=== PATIENT | male | born 2005 | race Caucasian/White ===

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

== ENCOUNTER 2023-01-16 17:16 | Inpatient (IN) | payer MEDICAID, SELFPAY ==
[2023-01-16 17:17] VITALS: BP 145/96; PULSE 102; RESP 18; TEMP 37.4; O2SAT 97; BMI 31.6
--- NOTE | 2023-01-16 17:36 | W.ED.PSYCHS ---
HPI - Psych General: Chief Complaint: Psychiatric Symptoms Stated Complaint: SI/HI Time Seen by Provider: 01/16/23 17:22 Source: patient History of Present Illness: 17-year-old male presents emergency room with EMS from a [facility]. He spent in conflict with the caregivers and very aggressive. He is threatened to kill them. He is also threatened to harm himself he says he attempted to overdose on melatonin to tea. He has a history of mental health issues. He has been seen at [facility] before he cannot review records. MD complaint: suicidal ideation Onset (ago): day(s) Duration: constant Relieving factors: none Exacerbating factors: none Associated psychiatric symptoms: suicidal ideation Associated symptoms: Reports suicidal ideation If self harm: admits thoughts of self harm, has plan and has acted on plan Review of Systems Const: Denies: fever(s), chills, body aches, change in appetite, fatigue or malaise Card: Denies: chest pain Resp: Denies: dyspnea GI: Denies: abdominal pain : Denies: flank pain, dysuria, urinary frequency or urinary urgency Skin/Breast: Denies: rash or pruritus Psych: Reports: suicidal ideation [facility] ED PFSH: Medical History Dysuria Psychiatric care Physical Exam Const: GENERAL APPEARANCE: cooperative and comfortable ORIENTATION/CONSCIOUSNESS: Yes awake, Yes oriented to person, Yes oriented to place and Yes oriented to time HENMT: COMMON NORMALS: normocephalic, atraumatic and hearing grossly normal bilaterally HEAD & SCALP: normocephalic and atraumatic Resp: COMMON NORMALS: normal respiratory effort, No retractions, No use of accessory muscles and clear to auscultation bilaterally AUSCULTATION: clear to auscultation bilaterally Cardio: COMMON NORMALS: regular rate, regular rhythm and No murmurs present (Cardio) RATE: regular rate RHYTHM: regular rhythm GI: COMMON NORMALS: Soft to palpation and No hepatosplenomegaly present AUSCULTATION: Yes normoactive bowel sounds PALPATION: Yes Soft to palpation, No Tenderness to palpation present (GI), No Guarding due to palpation present (GI) and Yes No hepatosplenomegaly present Extremity: COMMON NORMALS: normal to inspection, capillary refill normal, no clubbing, cyanosis or edema, no calf tenderness and no pedal edema Neuro: SENSORIUM/ORIENTATION: Yes oriented to person, Yes oriented to place and Yes oriented to time Skin: COMMON NORMALS: no rashes or lesions noted GENERAL SKIN EXAM: no rashes or lesions noted Course Vital Signs: Vital signs: Vital Signs Temperature 98.1 F 01/16/23 20:52 Pulse Rate 104 H 01/16/23 20:52 Respiratory Rate 18 01/16/23 21:48 Blood Pressure 171/110 01/16/23 20:52 Pulse Oximetry 97 01/16/23 20:52 Oxygen Delivery Me thod Room Air 01/16/23 20:54 MDM - Psych Medical Decision Making Discussed with Dr. Alvarado on-call. Will admit to the [facility] for suicidal ideation bridge orders written Medical Records I reviewed the patient's medical records. Lab Data I reviewed the patient's lab results. 01/16/23 17:50 01/16/23 17:50 Laboratory Results WBC 8.5 10^3/uL (4.5-13.0) 01/16/23 17:50 RBC 5.28 10^6/uL (4.1-5.3) 01/16/23 17:50 Hgb 15.1 g/dL (11.7-16.6) 01/16/23 17:50 Hct 45.0 % (42.0-52.0) 01/16/23 17:50 MCV 85.2 fl (80-94) 01/16/23 17:50 MCH 28.6 pg (28.0-34.0) 01/16/23 17:50 MCHC 33.6 g/dL (30.0-36.0) 01/16/23 17:50 RDW 12.9 % (12.1-15.1) 01/16/23 17:50 Plt Count 251 10^3/cmm (130-400) 01/16/23 17:50 MPV 10.0 fL (7.4-10.4) 01/16/23 17:50 Neut % (Auto) 64.4 % 01/16/23 17:50 Lymph % (Auto) 25.3 % 01/16/23 17:50 [place] % (Auto) 7.7 % 01/16/23 17:50 Eos % (Auto) 1.5 % 01/16/23 17:50 Baso % (Auto) 0.6 % 01/16/23 17:50 Neut # (Auto) 5.49 10^3/uL (1.8-8.0) 01/16/23 17:50 Lymph # (Auto) 2.2 10^3/uL (1.5-6.5) 01/16/23 17:50 [place] # (Auto) 0.7 10^3/uL (0.2-0.9) 01/16/23 17:50 Eos # (Auto) 0.1 10^3/uL (0.0-0.8) 01/16/23 17:50 Baso # (Auto) 0.1 10^3/uL (0.0-0.1) 01/16/23 17:50 Nucleated RBC % (auto) 0 % 01/16/23 17:50 Nucleated RBCs # 0.0 /100WBC 01/16/23 17:50 Sodium 139 mmol/L (136-145) 01/16/23 17:50 Potassium 4.1 mmol/L (3.5-5.1) 01/16/23 17:50 Chloride 105 mmol/L (98-107) 01/16/23 17:50 Carbon Dioxide 21 mmol/L (22-29) L 01/16/23 17:50 Anion Gap 17.1 (5-19) 01/16/23 17:50 BUN 17 mg/dL (6-20) 01/16/23 17:50 Creatinine 0.9 mg/dL (0.7-1.2) 01/16/23 17:50 GFR Calculation 108.7 mL/min (90-130) 01/16/23 17:50 Glucose 102 mg/dL (65-115) 01/16/23 17:50 Calculated Osmolality 290 mOsm/kg (285-295) 01/16/23 17:50 Calcium 8.8 mg/dL (8.5-10.5) 01/16/23 17:50 Total Bilirubin 0.4 mg/dL (0.15-1.2) 01/16/23 17:50 AST 43 U/L (0-40) H 01/16/23 17:50 ALT 113 U/L (0-41) H 01/16/23 17:50 Alkaline Phosphatase 114 U/L (40-130) 01/16/23 17:50 Total Protein 7.0 g/dL (6.6-8.7) 01/16/23 17:50 Albumin 4.4 g/dL (3.5-5.2) 01/16/23 17:50 Globulin 2.6 g/dL (1.3-4.6) 01/16/23 17:50 Urine Color Yellow (Yellow) 01/16/23 17:33 Urine Appearance Clear (CLEAR) 01/16/23 17:33 Urine pH 5 (5-7) 01/16/23 17:33 Ur Specific [place] 1.020 (1.005-1.030) 01/16/23 17:33 Urine Protein Neg (Negative) 01/16/23 17:33 Urine Glucose (UA) Norm (Normal) 01/16/23 17:33 Urine Ketones Negative (Negative) 01/16/23 17:33 Urine Blood Neg (Negative) 01/16/23 17:33 Urine Nitrate Negative (Negative) 01/16/23 17:33 Urine Bilirubin 1+ (Negative) H 01/16/23 17:33 Urine Urobilinogen 1 mg/dL (Negative) H 01/16/23 17:33 Ur Leukocyte Esterase Negative (Negative) 01/16/23 17:33 Salicylates < 0.3 mg/dL (3-10) L 01/16/23 17:50 Urine Opiates Screen Negative ng/mL (Negative) 01/16/23 17:33 Acetaminophen < 5.0 ug/mL (10-30) L 01/16/23 17:50 Ur Barbiturates Screen Negative ng/mL (Negative) 01/16/23 17:33 Ur Phencyclidine Scrn Negative ng/mL (Negative) 01/16/23 17:33 Ur Amphetamines Screen Negative ng/mL (Negative) 01/16/23 17:33 U Benzodiazepines Scrn Negative ng/mL (Negative) 01/16/23 17:33 Urine Cocaine Screen Negative ng/mL (Negative) 01/16/23 17:33 U Marijuana (THC) Screen Negative ng/mL (Negative) 01/16/23 17:33 Discharge Plan Discharge Patient Disposition: Admitted As Inpatient Admit Provider: Albaro Guerrero Clinical Impression: Suicidal ideation Condition: Stable Coding Level of Care Code ED Tape Control Skin Or Spar Mill Operator for Edi Mcgill
[2023-01-16 17:50] LABS: Add Urine Microscopic? NO; Charge for UA Resulting for Rev
[2023-01-16 17:54] LABS: Bilirubin Urine 1+ (Negative); Blood Urine Neg (Negative); Glucose Urine UA Norm (Normal); Ketones Urine Negative (Negative); Leukocyte Esterase Urine Negative (Negative); Nitrate Urine Negative (Negative); Protein Urine Neg (Negative); Urine Appearance Clear (CLEAR); Urine Color Yellow (Yellow); Urobilinogen Urine 1 mg/dL (Negative); pH Urine 5 (5-7)
[2023-01-16 18:01] LABS: Amphetamines Screen Urine Negative (Negative); Barbiturates Screen Urine Negative (Negative); Benzodiazepines Screen Urine Negative (Negative); Cocaine Screen Urine Negative (Negative); Opiate Screen Urine Negative (Negative); PCP Screen Urine Negative (Negative); THC Screen Urine Negative (Negative)
[2023-01-16 18:11] LABS: Basophils # 0.1 10^3/uL (0.0-0.1); Basophils % 0.6 %; Eosinophils # 0.1 10^3/uL (0.0-0.8); Eosinophils % 1.5 %; Hemoglobin 15.1 g/dL (11.7-16.6); Lymphocytes # 2.2 10^3/uL (1.5-6.5); Lymphocytes % 25.3 %; Mean Corpuscular HGB Conc 33.6 g/dL (30.0-36.0); Mean Corpuscular Hemoglobin 28.6 pg (28.0-34.0); Mean Corpuscular Volume 85.2 fl (80-94); Monocytes # 0.7 10^3/uL (0.2-0.9); Monocytes % 7.7 %; Neutrophils # 5.49 10^3/uL (1.8-8.0); Neutrophils % 64.4 %; Nucleated Red Blood Cells % 0 %; Platelet Count 251 10^3/cmm (130-400); Red Blood Count 5.28 10^6/uL (4.1-5.3); Red Cell Distribution Width 12.9 % (12.1-15.1); White Blood Count 8.5 10^3/uL (4.5-13.0)
[2023-01-16 18:41] LABS: Alanine Aminotransferase 113 U/L (0-41); Albumin Level 4.4 g/dL (3.5-5.2); Alkaline Phosphatase 114 U/L (40-130); Anion Gap 17.1 (5-19); Aspartate Amino Transferase 43 U/L (0-40); Blood Urea Nitrogen 17 mg/dL (6-20); Calcium 8.8 mg/dL (8.5-10.5); Carbon Dioxide 21 mmol/L (22-29); Chloride 105 mmol/L (98-107); Globulin 2.6 g/dL (1.3-4.6); Glomerular Filtration Rate 108.7 mL/min (90-130); Glucose 102 mg/dL (65-115); Osmolality Calculated 290 mOsm/kg (285-295); Potassium 4.1 mmol/L (3.5-5.1); Sodium 139 mmol/L (136-145); Total Bilirubin 0.4 mg/dL (0.15-1.2)
[2023-01-16 18:47] LABS: Acetaminophen < 5.0 ug/mL (10-30); Salicylate < 0.3 mg/dL (3-10)
[2023-01-16 20:52] VITALS: BP 171/110; PULSE 104; RESP 18; TEMP 36.7; O2SAT 97
[2023-01-16] MEDS: acetaminophen 325 mg Tablet 650 MG PO (21:22)
[2023-01-16] MEDS: nicotine 2 mg Gum BUCCAL ×2 (21:40→23:54)
[2023-01-16 21:48] VITALS: RESP 18
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
[2023-01-16] MEDS: OLANZapine 5 mg ODT PO (22:58)
[2023-01-16] MEDS: trazodone 50 mg Tablet PO ×2 (22:58→23:55)
[2023-01-16] MEDS: prazosin 1 mg Capsule 2 MG PO (23:36)
[2023-01-16] MEDS: amitriptyline 25 mg Tablet 100 MG PO (23:36)
--- NOTE | 2023-01-16 23:37 | PC.NURSE ---
NEW ORDERS RECEIVED TO START THE FOLLOWING MEDICATIONS. ATOMAXETINE 40 MG PO DAILY, VITAMIN D3 [id number] UNITS Q WEEK ON FRIDAYS, VISTARIL 25 MG PO BID, PRAZOSIN 2 MG PO Q HS, TAMSULOSIN 0.4 MG PO DAILY, ELIVIL 100 MG PO Q HS, LUTUDA 80 MG Q DAY 1700, COLACE 100 MG PO Q DAY, TRAZODONE 50 MG Q HS, FEXOFDENADINE 150 MG PO Q DAY. TRAZODONE 50 MG PO PRN Q HS MAY REPEAT TIMES ONE WAS DISCONTINUED FOR DUPLICATE THERAPY. PT WAS EDUCATED ON ALL NEW ORDERS. ALL QUESTIONS ANSWERED AND SUPPORT VOICED.
--- NOTE | 2023-01-17 04:10 | PC.NURSE ---
PT REQUESTED MEDICATION FOR ANXIETY AND SLEEP. PT RECEIVED ZYPREXA 5 MG ORDERED AND TRAZODONE 50 MG NEEDED FOR SLEEP. BOTH MEDICATIONS WERE EFFECTIVE. PT HAS BEEN RESTING IN BED WITH EYES CLOSED FOR APPROXIMATELY 5-6 HOURS.
[2023-01-17 06:00] VITALS: RESP 16
[2023-01-17] MEDS: nicotine 21 mg Patch 1 PATCH TRANSDERMA (08:49)
[2023-01-17] MEDS: hyDROXYzine 25 mg Capsule PO ×2 (08:49→17:49)
[2023-01-17] MEDS: docusate sodium 100 mg Capsule PO (08:49)
[2023-01-17] MEDS: atomoxetine 40 mg Capsule PO (08:49)
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
[2023-01-17 14:00] VITALS: BP 140/81; PULSE 119; RESP 17; TEMP 37.4; O2SAT 97
[2023-01-17] MEDS: nicotine 2 mg Gum BUCCAL ×3 (14:24→20:15)
--- NOTE | 2023-01-17 14:42 | PC.NURSE ---
This nurse called and talked to Lucy at [employer] [facility]. I asked her about the Methylpred tab pack 4mg in patient's MAR. Per Lucy, we are to not worry about this.
--- NOTE | 2023-01-17 15:18 | PC.NURSE ---
PATIENT'S NICOTINE PATCH REMOVED AT 1517. PATIENT CAN HAVE NICOTINE GUM AT 1717.
--- NOTE | 2023-01-17 15:32 | PC.NURSE ---
Patient asked about something for a rash on his face. Patient stated that he is supposed to be taking something. This nurse called and talked to Lucy at [facility] for a second time. Lucy called a manager transportation planning and talked to them. Upon further investigation, patient is to start methylpred. pack starting today for an allergy of some kind. Patient is supposed to take 5 pills today for the first day, spread throughout the day. Then 4 the next, etc. [facility] to bring something up to NPU so that we can start this tomorrow for patient.
[2023-01-17] MEDS: polyethylene glycol 3350 Pkt 17 gm PO (15:45)
[2023-01-17] MEDS: lurasidone 80 mg Tablet PO (16:41)
[2023-01-17] MEDS: prazosin 1 mg Capsule 2 MG PO (20:15)
[2023-01-17] MEDS: tamsulosin 0.4 mg Capsule PO (20:15)
[2023-01-17] MEDS: trazodone 50 mg Tablet PO (20:15)
[2023-01-17] MEDS: amitriptyline 25 mg Tablet 100 MG PO (20:16)
[2023-01-17 20:51] VITALS: BP 151/77; PULSE 118; RESP 15; TEMP 36.8; O2SAT 96
--- NOTE | 2023-01-17 21:31 | PC.NURSE ---
PT WALKING DOWN HALLWAY IN NO DISTRESS. JUST GOT OUT OF SHOWER, PT TOOK SO HE COULD CALM DOWN DUE TO GETTING REALLY ANXIOUS. PT IS EXHIBITING SIGNS OF HAVING GOOD COPING SKILLS. PT DENIES SI/HI AND AVH AT THIS TIME. DENIES PAIN. STATES HE IS READY TO GO HOME. PT WAS ENCOURAGED TO CONTINUE MAKING GOOD CHOICES AND USING COPING SKILLS TO DECREASE ANXIETY. PT TOOK MEDS AND WENT TO BED.
[2023-01-18 06:00] VITALS: BP 128/76; PULSE 115; RESP 18; TEMP 36.7; O2SAT 97
[2023-01-18] MEDS: nicotine 2 mg Gum BUCCAL ×2 (08:43→10:48)
[2023-01-18] MEDS: tamsulosin 0.4 mg Capsule PO (08:44)
[2023-01-18] MEDS: hyDROXYzine 25 mg Capsule PO (08:44)
[2023-01-18] MEDS: atomoxetine 40 mg Capsule PO (08:44)
[2023-01-18] MEDS: pantoprazole DR 40 mg Tablet PO (08:44)
[2023-01-18] MEDS: docusate sodium 100 mg Capsule PO (08:44)
[2023-01-18] MEDS: ergocalciferol (vitamin D2) 50,000 Unit Capsule 50000 UNIT PO (09:55)
[2023-01-18] MEDS: nicotine 21 mg Patch 1 PATCH TRANSDERMA (12:38)
[2023-01-18 14:00] VITALS: BP 141/90; PULSE 121; RESP 16; TEMP 36.6; O2SAT 95
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
[2023-01-18 14:31] VITALS: BP 128/76; PULSE 115; RESP 18; TEMP 36.7; O2SAT 97
== END 2023-01-18 14:41 | disposition home or self-care (01) | DRG 883 ==
LOC: ER 18:52 → NP 20:34
PROVIDERS: Admitting Provider Psychiatry & Neurology Psychiatry; Emergency Provider Family Medicine; PCP Nurse Practitioner Family; Visit Provider Psychiatry & Neurology Psychiatry
DX: F63.81 Intermittent explosive disorder (principal); R45.851 Suicidal ideations; R45.850 Homicidal ideations; Z62.810 Personal history of physical and sexual abuse in childhood; Z62.811 Personal history of psychological abuse in childhood; Z62.812 Personal history of neglect in childhood; F17.220 Nicotine dependence, chewing tobacco, uncomplicated; F17.210 Nicotine dependence, cigarettes, uncomplicated; F17.290 Nicotine dependence, other tobacco product, uncomplicated; F79 Unspecified intellectual disabilities; T50.992A Poisoning by other drugs, medicaments and biological substances, intentional self-harm, initial encounter; F43.10 Post-traumatic stress disorder, unspecified
CPT/HCPCS: 36415; 80053; 80306; 80307; 81003; 85025; 97150; 97165; 99285

== ENCOUNTER → 2023-02-05 14:29 | Outpatient (BNVA) | payer OTHER, SELFPAY | PROVIDERS: PCP Nurse Practitioner Family; Visit Provider Podiatrist Foot & Ankle Surgery | DX: S92.355D Nondisplaced fracture of fifth metatarsal bone, left foot, subsequent encounter for fracture with routine healing; W18.30XD Fall on same level, unspecified, subsequent encounter | CPT/HCPCS: 73630 ==

== ENCOUNTER → 2023-06-05 15:08 | Outpatient (BNVA) | payer OTHER, SELFPAY | PROVIDERS: PCP Nurse Practitioner Family; Visit Provider Nurse Practitioner Psychiatric/Mental Health | DX: Z79.899 Other long term (current) drug therapy (principal) | CPT/HCPCS: 80053; 80061; 81001; 83036; 83721 ==

== ENCOUNTER 2023-06-19 13:13 | Outpatient (CLI) | payer MEDICAID, SELFPAY ==
--- NOTE | 2023-06-19 13:20 | CT_ITS ---
WS: [id number] CT TEMPORAL BONES TECHNIQUE: Noncontrast CT of the temporal bones with coronal and sagittal reformatted images. CLINICAL INFORMATION: MIXED CONDUCTIVE SENSORINEURAL HEARING LOSS,BILATERAL COMPARISON: None. DLP: 928.[address] scans at [facility] use at least one of these dose optimization techniques: automated e xposure control; mA and/or kV adjustment per patient size (includes targeted exams where dose is matc hed to clinical indication); or iterative reconstruction. FINDINGS: Partially visualized paranasal sinuses are well aerated. Normal posterior nasopharynx. RIGHT: Mastoid air cells are well aerated. Normal external auditory canal. Ossicles are normal in appearance . Middle ear is well aerated. Normal tegmen tympani. Semicircular canals and cochlea are normal in ap pearance. Prussak's space is normal. Normal inner ear structures. Normal vestibular aqueduct. Facial nerve recess is normal. LEFT: Mastoid air cells are well aerated. Normal external auditory canal. Ossicles are normal in appearance . Middle ear is well aerated. Normal tegmen tympani. Semicircular canals and cochlea are normal in ap pearance. Prussak's space is normal. Normal inner ear structures. Normal vestibular aqueduct. Facial nerve recess is normal. IMPRESSION: 1. Mastoid air cells are well aerated bilaterally. 2. Paranasal sinuses are well aerated where visualized. 3. Normal inner ear structures and ossicles bilaterally. 4. Middle ears are well aerated bilaterally. 5. No other suspicious findings.
== END 2023-06-19 13:14 | disposition home or self-care (01) ==
LOC: RAD 13:13
PROVIDERS: PCP Nurse Practitioner Family; Visit Provider Specialist
DX: H90.6 Mixed conductive and sensorineural hearing loss, bilateral (principal)
CPT/HCPCS: 70480

== ENCOUNTER 2023-07-02 17:30 | Emergency (ER) | payer MEDICAID, SELFPAY ==
[2023-07-02 17:36] VITALS: BP 119/69; PULSE 112; RESP 16; TEMP 36.9; O2SAT 96; BMI 34.2
--- NOTE | 2023-07-02 17:47 | ED.C_ITS ---
HPI - Psych 2 General: Chief Complaint: Psychiatric Symptoms Stated Complaint: SI Time Seen by Provider: 07/02/23 17:33 Source: patient Mode of arrival: ambulatory Limitations: no limitations History of Present Illness: 18-year-old male is here from [employer] [facility] and states that he had made a statement that he wanted to kill himself today. He states he is not suicidal he states he was just saying things he does have a history of cutting he states he does not has a release was admitted 7 months ago to our psych [facility]. He does admit to some depression denies any SI. Associated symptoms: Reports depression Review of Systems 2 Const: Denies: fever(s) or chills ENMT: Denies: throat pain or dental pain Card: Denies: chest pain Resp: Denies: dyspnea GI: Denies: abdominal pain, nausea, vomiting or diarrhea Musc: Denies: neck pain or back pain Skin/Breast: Denies: rash Neuro: Denies: headache(s) Psych: Reports: depression [facility] ED 2 PFSH: Medical History Nicotine dependence, cigarettes, uncomplicated Nicotine dependence, chewing tobacco, uncomplicated Nicotine dependence due to vaping tobacco product Chronic post-traumatic stress disorder Moderate intellectual disabilities Intermittent explosive disorder in adult severe Psychiatric care Dysuria Physical Exam 2 Const: COMMON NORMALS: no acute distress, patient oriented x3 and healthy appearing HENMT: COMMON NORMALS: normocephalic and atraumatic HEAD & SCALP: n ormocephalic and atraumatic Neck/C-Spine: COMMON NORMALS: full ROM and supple Chest: COMMONS NORMALS: normal inspection of the chest Resp: COMMON NORMALS: normal respiratory effort Cardio: COMMON NORMALS: regular rate RATE: regular rate Extremity: COMMON NORMALS: normal to inspection and full ROM Neuro: COMMON NORMALS: patient oriented x3, moves all extremities and no focal motor deficits Psych: COMMON NORMALS: mental status grossly normal, Normal thought process present and cooperative THOUGHT PROCESS: Normal thought process present Skin: COMMON NORMALS: no rashes or lesions noted and no wounds GENERAL SKIN EXAM: no rashes or lesions noted Course 2 Vital Signs: Vital signs: Vital Signs Temperature 98.4 F 07/02/23 17:36 Pulse Rate 112 H 07/02/23 17:36 Respiratory Rate 16 07/02/23 17:36 Blood Pressure 119/69 07/02/23 17:36 Pulse Oximetry 96 07/02/23 17:36 Oxygen Delivery Me thod Room Air 07/02/23 17:36 MDM - Psych Medical Decision Making Patient presents here with depression he made statements about harming himself he is not currently suicidal has been very cooperative here I did discuss case with Dr. Ulloa I do not believe patient is a threat to harm himself or others he is stable for discharge she is to follow-up with [facility] return if worsening. Medical Records I reviewed the patient's medical records. Lab Data I reviewed the patient's lab results. 07/02/23 18:00 07/02/23 18:00 Laboratory Results WBC 10.54 10^3/uL (4.5-13.0) 07/02/23 18:00 RBC 5.22 10^6/uL (3.85-5.65) 07/02/23 18:00 Hgb 15.30 g/dL (13.2-15.6) 07/02/23 18:00 Hct 46.3 % (37-53) 07/02/23 18:00 MCV 88.7 fl (82-101) 07/02/23 18:00 MCH 29.3 pg (27-33) 07/02/23 18:00 MCHC 33.0 g/dL (30-55) 07/02/23 18:00 RDW 12.7 % (12.1-15.1) 07/02/23 18:00 Plt Count 290 10^3/cmm (157-399) 07/02/23 18:00 MPV 10.1 fL (7.4-10.4) 07/02/23 18:00 Neut % (Auto) 58.7 % 07/02/23 18:00 Lymph % (Auto) 29.0 % 07/02/23 18:00 Anderson % (Auto) 8.1 % 07/02/23 18:00 Eos % (Auto) 2.0 % 07/02/23 18:00 Baso % (Auto) 0.8 % 07/02/23 18:00 Neut # (Auto) 6.19 10^3/uL (1.8-8.0) 07/02/23 18:00 Lymph # (Auto) 3.1 10^3/uL (1.5-6.5) 07/02/23 18:00 Anderson # (Auto) 0.9 10^3/uL (0.2-0.9) 07/02/23 18:00 Eos # (Auto) 0.2 10^3/uL (0.0-0.8) 07/02/23 18:00 Baso # (Auto) 0.1 10^3/uL (0.0-0.1) 07/02/23 18:00 Nucleated RBC % (auto) 0 % 07/02/23 18:00 Nucleated RBCs # 0.0 /100WBC 07/02/23 18:00 No radiology studies performed this visit Discharge Plan Discharge Patient Disposition: Home Clinical Impression: Depression Qualifiers: Depression Type: unspecified Qualified Code(s): F32.A - Depression, unspecified Condition: Stable Prescriptions: No Action omeprazole 20 mg capsule,delayed release(DR/EC) 40 mg PO DAILY fexofenadine 180 mg tablet 180 mg PO DAILY famotidine 20 mg tablet 20 mg PO BID amitriptyline 50 mg tablet 50 mg PO BEDTIME Qty: 7 0RF Rx Instructions: Take one tablet at bedtime x 7 days then discontinue divalproex [Depakote] 500 mg tablet,delayed release (DR/EC) 500 mg PO DIRECTED Qty: 60 1RF Rx Instructions: Take one tablet every morning and at 7 pm quetiapine [Seroquel] 25 mg tablet 25 mg PO BEDTIME Qty: 30 1RF Rx Instructions: Take one tablet at bedtime lorazepam [Ativan] 2 mg tablet 2 mg PO BID PRN (Reason: severe agitation/anxiety) Qty: 60 1RF Rx Instructions: May take one tablet twice per day as needed for severe agitation/anxiety acetaminophen [Tylenol] 325 mg tablet 650 mg PO Q4H PRN (Reason: pain) Qty: 30 0RF ibuprofen 800 mg Tablet 800 mg PO Q8H PRN (Reason: Pain) tamsulosin 0.4 mg capsule 0.4 mg PO DAILY 30 Days Qty: 30 1RF Discharge Orders: Discharge ED (Routine); Ordered 07/02/23 Ordered By: Stefania Do Referrals: Ella Flor FNP [Primary Care Provider] - 1-3 days Discharge Diet: Advance as tolerated Discharge Activity: Resume usual activity Patient Instructions: Depression (ED) Coding Level of Care Code ED Component Assembler Supervisor for Edi Mcgill
[2023-07-02 18:15] LABS: Basophils # 0.1 10^3/uL (0.0-0.1); Basophils % 0.8 %; Eosinophils # 0.2 10^3/uL (0.0-0.8); Hematocrit 46.3 % (37-53); Lymphocytes # 3.1 10^3/uL (1.5-6.5); Mean Corpuscular Hemoglobin 29.3 pg (27-33); Mean Corpuscular Volume 88.7 fl (82-101); Mean Platelet Volume 10.1 fL (7.4-10.4); Monocytes # 0.9 10^3/uL (0.2-0.9); Monocytes % 8.1 %; Neutrophils # 6.19 10^3/uL (1.8-8.0); Neutrophils % 58.7 %; Nucleated Red Blood Cells % 0 %; Platelet Count 290 10^3/cmm (157-399); Red Blood Count 5.22 10^6/uL (3.85-5.65); Red Cell Distribution Width 12.7 % (12.1-15.1); White Blood Count 10.54 10^3/uL (4.5-13.0)
[2023-07-02 18:39] LABS: Alanine Aminotransferase 105 U/L (0-41); Albumin Level 4.6 g/dL (3.5-5.2); Alkaline Phosphatase 108 U/L (40-130); Anion Gap 13.5 (5-19); Aspartate Amino Transferase 35 U/L (0-40); Blood Urea Nitrogen 10 mg/dL (6-20); Calcium 9.5 mg/dL (8.5-10.5); Carbon Dioxide 26 mmol/L (22-29); Chloride 106 mmol/L (98-107); Globulin 2.7 g/dL (1.3-4.6); Glomerular Filtration Rate 107.6 mL/min (90-130); Glucose 123 mg/dL (65-115); Osmolality Calculated 292 mOsm/kg (285-295); Potassium 4.5 mmol/L (3.5-5.1); Sodium 141 mmol/L (136-145); Total Bilirubin 0.2 mg/dL (0.15-1.2); Total Protein 7.3 g/dL (6.6-8.7)
[2023-07-02 18:52] LABS: Acetaminophen < 5.0 ug/mL (10-30); Alcohol Level < 10 mg/dL (0-10); Salicylate < 0.3 mg/dL (3-10)
== END 2023-07-02 18:24 | disposition home or self-care (01) ==
PROVIDERS: Emergency Provider Emergency Medicine; PCP Nurse Practitioner Family
DX: F32.A Depression, unspecified (principal)
CPT/HCPCS: 36415; 80053; 80307; 85025; 99283

== ENCOUNTER 2023-07-17 17:32 | Emergency (ER) | payer MEDICAID, SELFPAY ==
[2023-07-17 17:42] VITALS: BP 150/90; PULSE 106; RESP 16; TEMP 37.1; O2SAT 98; BMI 48.2
[2023-07-17 19:18] LABS: Basophils # 0.1 10^3/uL (0.0-0.1); Basophils % 0.6 %; Eosinophils # 0.1 10^3/uL (0.0-0.8); Eosinophils % 1.2 %; Hematocrit 43.9 % (37-53); Lymphocytes # 2.6 10^3/uL (1.5-6.5); Lymphocytes % 24.7 %; Mean Corpuscular HGB Conc 32.8 g/dL (30-55); Mean Corpuscular Hemoglobin 29.4 pg (27-33); Mean Corpuscular Volume 89.6 fl (82-101); Mean Platelet Volume 10.2 fL (7.4-10.4); Monocytes # 0.9 10^3/uL (0.2-0.9); Monocytes % 8.5 %; Neutrophils # 6.85 10^3/uL (1.8-8.0); Neutrophils % 64.4 %; Nucleated Red Blood Cells % 0 %; Platelet Count 250 10^3/cmm (157-399); White Blood Count 10.62 10^3/uL (4.5-13.0)
--- NOTE | 2023-07-17 19:18 | CTR_ITS ---
PROCEDURE INFORMATION: Exam: CT Abdomen And Pelvis With Contrast Exam date and time: 07/17/2023 9:26 PM Age: 18 years old Clinical indication: Abdominal pain; Localized; Right lower quadrant (rlq); Additional info: Rlq abd pain TECHNIQUE: Imaging protocol: Computed tomography of the abdomen and pelvis with contrast. Radiation optimization: All CT scans at this facility use at least one of these dose optimization techniques: automated exposure control; mA and/or kV adjustment per patient size (includes targeted exams where dose is matched to clinical indication); or iterative reconstruction. Contrast material: OMNI 350; Contrast volume: 100 ml; Contrast route: INTRAVENOUS (IV); COMPARISON: CR XR abdomen min 2V [id number] 05/11/2023 11:39 RADIATION DOSE METRICS: Total DLP (mGy-cm): 1508 FINDINGS: Liver: Diffuse fatty infiltration of the liver with focal areas of sparing. Gallbladder and bile ducts: Normal. No calcified stones. No ductal dilation. Pancreas: Normal. No ductal dilation. Spleen: Normal. No splenomegaly. Adrenal glands: Normal. No mass. Kidneys and ureters: Normal. No hydronephrosis. Stomach and bowel: Unremarkable. No obstruction. No mucosal thickening. Appendix: The appendix is visualized and is normal. Intraperitoneal space: Unremarkable. No free air. No significant fluid collection. Vasculature: Unremarkable. No abdominal aortic aneurysm. Lymph nodes: Unremarkable. No enlarged lymph nodes. Urinary bladder: Unremarkable as visualized. Reproductive: Unremarkable as visualized. Bones/joints: Unremarkable. No acute fracture. Soft tissues: Unremarkable. CT/CT abdomen pelvis w con* [id number] IMPRESSION: 1. No acute findings. 2. Fatty infiltration of the liver.
--- NOTE | 2023-07-17 19:19 | ED_ITS ---
HPI - Abdominal Pain 2 General: Chief Complaint: Abdominal Pain Stated Complaint: abd pain Time Seen by Provider: 07/17/23 19:19 History of Present Illness: 18-year-old male presents to the emergen cy department after being advised to come to the ER by the walk-in clinic to be evaluated for his right lower quadrant and lower abdominal pain. Patient states that the concern to the walk- in clinic was that he may have a acute appendicitis. He states the abdominal pain started approximately 3 months ago and has been intermittent but today became worse. He denies nausea vomiting fevers chills or diarrhea. He denies constipation. Associated Symptoms: Reports nausea Review of Systems 2 General: Reports: 10 or more systems reviewed and unremarkable except in HPI and below GI: Reports: abdominal pain and nausea PFSH ED 2 PFSH: Medical History (Updated 07/17/23 @ 22:06 by Ad Mojica MD) Panic disorder Nicotine dependence, cigarettes, uncomplicated Nicotine dependence, chewing tobacco, uncomplicated Nicotine dependence due to vaping tobacco product Chronic post-traumatic stress disorder Moderate intellectual disabilities Intermittent explosive disorder in adult severe Psychiatric care Dysuria Physical Exam 2 Narrative: EXAM NARRATIVE: Constitutional: the patient appears well nourished and of normal development. Vital signs as documented. No acute distress at present. Alert and oriented-to person, place, time and situation. Head, eyes, ears, nose, mouth, throat: Normocephalic, atraumatic. Pupils-equal, round, reactive to light. No scleral icterus. Normal-appearing external ears. Normal appearing nasal turbinates, no drainage. No obvious oral lesions, posterior oropharynx without erythema or exudates. Neck: Supple, trachea is midline, no lymphadenopathy, no jugular venous distension, thyromegaly, or carotid bruits. Carotid upstrokes are brisk bilaterally. Lungs: clear to auscultation to all lung reyes. Symmetrical rise and fall of chest, no obvious signs of increased work of breathing at present. Cardiac: Regular rate and rhythm, positive S1, S2. No murmurs, rubs or gallops that I can appreciate Abdomen: Soft, right lower quadrant to palpation, normal active bowel sounds to all quadrants. No palpable masses, no organomegaly and abdominal bruits. Extremities: 2+ pulses in the upper extremities that are equal bilaterally, 2+ pulses in the lower extremities that are equal bilaterally. Non-edematous. Moves all extremities well, sensation to all extremities are noted. Skin: Warm, dry, intact. Course 2 Vital Signs: Vital signs: Vital Signs Temperature 98.7 F 07/17/23 17:42 Pulse Rate 111 H 07/17/23 22:26 Respiratory Rate 16 07/17/23 17:42 Blood Pressure 160/99 07/17/23 21:23 Pulse Oximetry 96 07/17/23 22:26 Oxygen Delivery Me thod Room Air 07/17/23 22:24 MDM - Abdominal Pain Medical Decision Making Physical exam completed and documented, I will obtain IV access a CBC and CMP as well as a CT scan of the abdomen pelvis to rule out acute appendicitis, colitis, enteritis, Medical Records I reviewed the patient's medical records. Lab Data I reviewed the patient's lab results. 07/17/23 19:00 07/17/23 19:00 Labs/Radiology: Radiology Impressions Abdomen/Pelvis CT 07/17/23 19:18 IMPRESSION: 1. No acute findings. 2. Fatty infiltration of the liver. Laboratory Results WBC 10.62 10^3/uL (4.5-13.0) 07/17/23 19:00 RBC 4.90 10^6/uL (3.85-5.65) 07/17/23 19:00 Hgb 14.40 g/dL (13.2-15.6) 07/17/23 19:00 Hct 43.9 % (37-53) 07/17/23 19:00 MCV 89.6 fl (82-101) 07/17/23 19:00 MCH 29.4 pg (27-33) 07/17/23 19:00 MCHC 32.8 g/dL (30-55) 07/17/23 19:00 RDW 13.0 % (12.1-15.1) 07/17/23 19:00 Plt Count 250 10^3/cmm (157-399) 07/17/23 19:00 MPV 10.2 fL (7.4-10.4) 07/17/23 19:00 Neut % (Auto) 64.4 % 07/17/23 19:00 Lymph % (Auto) 24.7 % 07/17/23 19: Brooke % (Auto) 8.5 % 07/17/23 19:00 Eos % (Auto) 1.2 % 07/17/23 19:00 Baso % (Auto) 0.6 % 07/17/23 19:00 Neut # (Auto) 6.85 10^3/uL (1.8-8.0) 07/17/23 19:00 Lymph # (Auto) 2.6 10^3/uL (1.5-6.5) 07/17/23 19:00 Brooke # (Auto) 0.9 10^3/uL (0.2-0.9) 07/17/23 19:00 Eos # (Auto) 0.1 10^3/uL (0.0-0.8) 07/17/23 19:00 Baso # (Auto) 0.1 10^3/uL (0.0-0.1) 07/17/23 19:00 Nucleated RBC % (auto) 0 % 07/17/23 19:00 Nucleated RBCs # 0.0 /100WBC 07/17/23 19:00 Sodium 143 mmol/L (136-145) 07/17/23 19:00 Potassium 3.9 mmol/L (3.5-5.1) 07/17/23 19:00 Chloride 106 mmol/L (98-107) 07/17/23 19:00 Carbon Dioxide 26 mmol/L (22-29) 07/17/23 19:00 Anion Gap 14.9 (5-19) 07/17/23 19:00 BUN 15 mg/dL (6-20) 07/17/23 19:00 Creatinine 0.8 mg/dL (0.7-1.2) 07/17/23 19:00 GFR Calculation 123.2 mL/min (90-130) 07/17/23 19:00 Glucose 111 mg/dL (65-115) 07/17/23 19:00 Calculated Osmolality 298 mOsm/kg (285-295) H 07/17/23 19:00 Calcium 9.2 mg/dL (8.5-10.5) 07/17/23 19:00 Total Bilirubin 0.3 mg/dL (0.15-1.2) 07/17/23 19:00 AST 31 U/L (0-40) 07/17/23 19:00 ALT 78 U/L (0-41) H 07/17/23 19:00 Alkaline Phosphatase 91 U/L (40-130) 07/17/23 19:00 Total Protein 7.2 g/dL (6.6-8.7) 07/17/23 19:00 Albumin 4.4 g/dL (3.5-5.2) 07/17/23 19:00 Globulin 2.8 g/dL (1.3-4.6) 07/17/23 19:00 Lipase 17 U/L (13-60) 07/17/23 19:00 Urine Color Yellow (Yellow) 07/17/23 20:00 Urine Appearance Clear (CLEAR) 07/17/23 20:00 Urine pH 5 (5-7) 07/17/23 20:00 Ur Specific [place] 1.025 (1.005-1.030) 07/17/23 20:00 Urine Protein Neg (Negative) 07/17/23 20:00 Urine Glucose (UA) Norm (Normal) 07/17/23 20:00 Urine Ketones Negative (Negative) 07/17/23 20:00 Urine Blood Neg (Negative) 07/17/23 20:00 Urine Nitrate Negative (Negative) 07/17/23 20:00 Urine Bilirubin Neg (Negative) 07/17/23 20:00 Urine Urobilinogen 1 mg/dL (Negative) H 07/17/23 20:00 Ur Leukocyte Esterase Negative (Negative) 07/17/23 20:00 All radiology interpretation(s) finalized by discharge Discharge Plan Discharge Patient Disposition: Home Clinical Impression: Abdominal pain Qualifiers: Abdominal location: generalized Qualified Code(s): R10.84 - Generalized abdominal pain Condition: Stable Prescriptions: No Action omeprazole 20 mg capsule,delayed release(DR/EC) 40 mg PO DAILY fexofenadine 180 mg tablet 180 mg PO DAILY famotidine 20 mg tablet 20 mg PO BID divalproex [Depakote] 500 mg tablet,delayed release (DR/EC) 1,000 mg PO .7 pm Qty: 60 2RF Rx Instructions: Take two tablets at 7 pm quetiapine [Seroquel] 100 mg tablet 100 mg PO BEDTIME Qty: 30 2RF Rx Instructions: Take one tablet at bedtime clonazepam [Klonopin] 0.5 mg tablet 0.5 mg PO TID Qty: 90 1RF Rx Instructions: Take one tablet at 8 am, 2 pm and 8 pm acetaminophen [Tylenol] 325 mg tablet 650 mg PO Q4H PRN (Reason: pain) Qty: 30 0RF ibuprofen 800 mg Tablet 800 mg PO Q8H PRN (Reason: Pain) tamsulosin 0.4 mg capsule 0.4 mg PO DAILY 30 Days Qty: 30 1RF Discharge Orders: Discharge ED (Routine); Ordered 07/17/23 Ordered By: Ad Mojica Referrals: Ella Flor FNP [Primary Care Provider] - Discharge Diet: Advance as tolerated Discharge Activity: Resume usual activity Patient Instructions: Abdominal Pain (ED), Opioid Safety, Pain Management Activity Restrictions/Additional Instructions: Activity Restrictions/Additional Instructions: Thank you for choosing [facility] for your healthcare needs today. Please realize that you were seen in the Emergency Department and that we are providing you with an emergency medical screening exam and this may not be a complete and all inclusive of all the testing and or medical work-up that you may need to determine your ailment or severity of your illness. It is very important that you follow-up as instructed with your Primary care provider or Specialist for additional evaluation and to discuss your medical treatment plan. You may return to the Emergency Department should you have concerns or if your condition changes or worsens in any way. Coding Level of Care Code ED Leather Fitter for Edi Mcgill
[2023-07-17 19:36] LABS: Alanine Aminotransferase 78 U/L (0-41); Albumin Level 4.4 g/dL (3.5-5.2); Alkaline Phosphatase 91 U/L (40-130); Anion Gap 14.9 (5-19); Aspartate Amino Transferase 31 U/L (0-40); Blood Urea Nitrogen 15 mg/dL (6-20); Calcium 9.2 mg/dL (8.5-10.5); Carbon Dioxide 26 mmol/L (22-29); Chloride 106 mmol/L (98-107); Globulin 2.8 g/dL (1.3-4.6); Glomerular Filtration Rate 123.2 mL/min (90-130); Glucose 111 mg/dL (65-115); Lipase 17 U/L (13-60); Osmolality Calculated 298 mOsm/kg (285-295); Potassium 3.9 mmol/L (3.5-5.1); Sodium 143 mmol/L (136-145); Total Bilirubin 0.3 mg/dL (0.15-1.2); Total Protein 7.2 g/dL (6.6-8.7)
[2023-07-17 20:19] LABS: Add Urine Microscopic? NO; Charge for UA Resulting for Rev
[2023-07-17 20:28] LABS: Bilirubin Urine Neg (Negative); Blood Urine Neg (Negative); Glucose Urine UA Norm (Normal); Ketones Urine Negative (Negative); Leukocyte Esterase Urine Negative (Negative); Nitrate Urine Negative (Negative); Protein Urine Neg (Negative); Specific Gravity, Urine 1.025 (1.005-1.030); Urine Appearance Clear (CLEAR); Urine Color Yellow (Yellow); Urobilinogen Urine 1 mg/dL (Negative); pH Urine 5 (5-7)
--- NOTE | 2023-07-17 21:13 | PC.NURSE ---
[facility] NURSE YANDEL MCGINNIS ATTEMPTING TO START IV ON PATIENT, PATIENT BEGAN TO YELL, STATING THAT HE DIDN'T FEEL INFORMED ON ANY DECISION AND THAT HE WANTED TO SPEAK WITH HIS GUARDIAN PRIOR TO ANY IV BEING STARTED. THIS NURSE ROUNDED ON PATIENT AND LISTENED TO PATIENT SPEAK WITH GUARDIAN JANETT PAIGE ON THE PHONE REGARDING HIS CONCERNS. JANETT AND THIS NURSE EXPLAINED TO PATIENT WHY THE IV WAS MEDICALLY NECESSARY. JANETT PAIGE TOLD THIS NURSE AT 2113 OVER THE PHONE THAT SHE GAVE VERBAL PERMISSION TO TREAT PATIENT. PATIENT WAS THEN OKAY WITH IV BEING STARTED FOR CT.
[2023-07-17 21:23] VITALS: BP 160/99
[2023-07-17] MEDS: iohexol 350 mg/mL 500 mL Btl (per mL) IV (21:28)
[2023-07-17 21:36] VITALS: PULSE 104; O2SAT 99
[2023-07-17 22:24] VITALS: PULSE 111; O2SAT 96
--- NOTE | 2023-07-17 22:25 | PC.NURSE ---
GUARDIAN JANETT PAIGE CALLED AND UPDATED ON PATIENT'S DISCHARGE PAPERS AND DX. THIS NURSE INFORMED MS PAIGE THAT PT WAS BEING DISCHARGED WITH CAREGIVER FROM [facility], MS PAIGE VERBALIZED UNDERSTANDING AND HAD NO QUESTIONS OR CONCERNS. PAPERWORK SIGNED AND GIVEN TO CAREGIVER AT [facility].
[2023-07-17 22:26] VITALS: PULSE 111; O2SAT 96
== END 2023-07-17 22:28 | disposition home or self-care (01) ==
PROVIDERS: Nurse Practitioner Family; Emergency Provider Internal Medicine; PCP Nurse Practitioner Family
DX: R10.84 Generalized abdominal pain (principal); F17.210 Nicotine dependence, cigarettes, uncomplicated; F17.220 Nicotine dependence, chewing tobacco, uncomplicated
CPT/HCPCS: 36415; 74177; 80053; 81003; 83690; 85025; 99285; Q9967

== ENCOUNTER 2023-08-02 15:58 | Emergency (ER) | payer MEDICAID, SELFPAY ==
[2023-08-02 15:59] VITALS: BP 145/89; PULSE 94; RESP 16; TEMP 37.3; O2SAT 99
--- NOTE | 2023-08-02 16:13 | W.ED.PSYCHS ---
Documented by User: MARIA DEL CARMEN Mares 08/02/23 17:15 HPI - Psych General: Chief Complaint: Psychiatric Symptoms Stated Complaint: psych eval Time Seen by Provider: 08/02/23 16:01 Source: patient and police Mode of arrival: ambulatory Limitations: no limitations History of Present Illness: Patient is a 18-year-old male here from [facility] in police custody for evaluation of suicidal ideations and reported suicide attempt. Patient reportedly took an electrical cord and wrapped it around his neck and tried to tighten it and a strangulation/suicide attempt. Patient tells me that he is very unhappy at [facility]. He feels like he is not given food or drink adequately and feels like the food he is provided with makes me sick . He is essentially demanding admission to [facility] and requests that they find another fdc for him. Patient tells me if he is not admitted to [facility] then he will cause a scene and wind up in restraints . MD complaint: suicidal ideation Onset (ago): day(s) Duration: constant History of same: Yes Relieving factors: none Exacerbating factors: none Associated psychiatric symptoms: depression and suicidal ideation Associated symptoms: Reports depression and suicidal ideation; Deny auditory hallucinations, visual hallucinations or homicidal ideation Treatments prior to arrival: none If self harm: admits thoughts of self harm and has acted on plan Review of Systems Const: Denies: fever(s) or chills Card: Denies: chest pain, palpitations, lightheadedness or syncope Resp: Denies: dyspnea GI: Denies: abdominal pain, nausea, vomiting or diarrhea Skin/Breast: Denies: rash Neuro: Denies: headache(s) Psych: Reports: depression, irritability and suicidal ideation; Denies: paranoia, visual hallucinations, auditory hallucinations or homicidal ideation [facility] ED PFSH: Medical History Panic disorder Nicotine dependence, cigarettes, uncomplicated Nicotine dependence, chewing tobacco, uncomplicated Nicotine dependence due to vaping tobacco product Chronic post-traumatic stress disorder Moderate intellectual disabilities Intermittent explosive disorder in adult severe Psychiatric care Dysuria Physical Exam Const: COMMON NORMALS: no acute distress, patient oriented x3, alert and well nourished GENERAL APPEARANCE: cooperative and well kempt Resp: COMMON NORMALS: normal respiratory effort and clear to auscultation bilaterally AUSCULTATION: clear to auscultation bilaterally Cardio: COMMON NORMALS: regular rate and regular rhythm RATE: regular rate RHYTHM: regular rhythm Neuro: COMMON NORMALS: patient oriented x3 SENSORIUM/ORIENTATION: Yes alert Psych: COMMON NORMALS: mental status grossly normal, Normal thought process present, cooperative, speech normal, activity/motor behavior normal, denies hallucinations and denies homicidal ideation APPEARANCE: Yes grossly normal and Yes well kempt ATTITUDE: Yes agitated ACTIVITY/MOTOR BEHAVIOR: Yes appropriate eye contact and No psychomotor agitation SPEECH: Yes normal speech MOOD & AFFECT: Yes irritable THOUGHT PROCESS: Normal thought process present THOUGHT CONTENT: Yes Normal thought content present ATTENTION/CONCENTRATION: Yes attention grossly intact and Yes concentration grossly intact MEMORY/COGNITION: Yes memory grossly intact and Yes cognition grossly intact INSIGHT: Fair insight present (Psych) JUDGEMENT: Fair judgement present (Psych) Course ED course: Dr. Ulloa-coming to evaluate patient here in the ED and make disposition decision following assessment Vital Signs: Vital signs: Vital Signs Temperature 99.2 F 08/02/23 15:59 Pulse Rate 94 08/02/23 15:59 Respiratory Rate 16 08/02/23 15:59 Blood Pressure 145/89 08/02/23 15:59 Pulse Oximetry 99 08/02/23 15:59 Oxygen Delivery Me thod Room Air 08/02/23 15:59 MDM - Psych Lab Data 08/02/23 16:28 08/02/23 16:28 Laboratory Results WBC 8.30 10^3/uL (4.5-13.0) 08/02/23 16:28 RBC 4.73 10^6/uL (3.85-5.65) 08/02/23 16:28 Hgb 14.00 g/dL (13.2-15.6) 08/02/23 16:28 Hct 42.0 % (37-53) 08/02/23 16:28 MCV 88.8 fl (82-101) 08/02/23 16:28 MCH 29.6 pg (27-33) 08/02/23 16:28 MCHC 33.3 g/dL (30-55) 08/02/23 16:28 RDW 12.6 % (12.1-15.1) 08/02/23 16:28 Plt Count 239 10^3/cmm (157-399) 08/02/23 16: MPV 9.9 fL (7.4-10.4) 08/02/23 16: Neut % (Auto) 57.2 % 08/02/23 16: Lymph % (Auto) 31.6 % 08/02/23 16: [place] % (Auto) 7.5 % 08/02/23 16: Eos % (Auto) 2.3 % 08/02/23 16: Baso % (Auto) 0.8 % 08/02/23 16: Neut # (Auto) 4.75 10^3/uL (1.8-8.0) 08/02/23 16: Lymph # (Auto) 2.6 10^3/uL (1.5-6.5) 08/02/23 16: [place] # (Auto) 0.6 10^3/uL (0.2-0.9) 08/02/23 16: Eos # (Auto) 0.2 10^3/uL (0.0-0.8) 08/02/23 16: Baso # (Auto) 0.1 10^3/uL (0.0-0.1) 08/02/23 16: Nucleated RBC % (auto) 0 % 08/02/23 16: Nucleated RBCs # 0.0 /100WBC 08/02/23 16: Sodium 143 mmol/L (136-145) 08/02/23 16: Potassium 4.3 mmol/L (3.5-5.1) 08/02/23 16: Chloride 106 mmol/L (98-107) 08/02/23 16: Carbon Dioxide 25 mmol/L (22-29) 08/02/23 16:28 Anion Gap 16.3 (5-19) 08/02/23 16:28 BUN 15 mg/dL (6-20) 08/02/23 16: Creatinine 0.7 mg/dL (0.7-1.2) 08/02/23 16: GFR Calculation 143.8 mL/min (90-130) H 08/02/23 16:28 Glucose 98 mg/dL (65-115) 08/02/23 16:28 Calculated Osmolality 297 mOsm/kg (285-295) H 08/02/23 16:28 Calcium 9.3 mg/dL (8.5-10.5) 08/02/23 16:28 Total Bilirubin 0.2 mg/dL (0.15-1.2) 08/02/23 16:28 AST 39 U/L (0-40) 08/02/23 16:28 ALT 93 U/L (0-41) H 08/02/23 16:28 Alkaline Phosphatase 89 U/L (40-130) 08/02/23 16:28 Total Protein 6.5 g/dL (6.6-8.7) L 08/02/23 16:28 Albumin 4.1 g/dL (3.5-5.2) 08/02/23 16:28 Globulin 2.4 g/dL (1.3-4.6) 08/02/23 16:28 Salicylates < 0.3 mg/dL (3-10) L 08/02/23 16:28 Urine Opiates Screen Negative ng/mL (Negative) 08/02/23 16:15 Acetaminophen < 5.0 ug/mL (10-30) L 08/02/23 16:28 Ur Barbiturates Screen Negative ng/mL (Negative) 08/02/23 16:15 Ur Phencyclidine Scrn Negative ng/mL (Negative) 08/02/23 16:15 Ur Amphetamines Screen Negative ng/mL (Negative) 08/02/23 16:15 U Benzodiazepines Scrn Negative ng/mL (Negative) 08/02/23 16:15 Urine Cocaine Screen Negative ng/mL (Negative) 08/02/23 16:15 U Marijuana (THC) Screen Negative ng/mL (Negative) 08/02/23 16:15 Ethyl Alcohol < 10 mg/dL (0-10) 08/02/23 16:28 Discharge Plan Discharge Patient Disposition: Home Clinical Impression: Depression Condition: Stable Prescriptions: No Action omeprazole 20 mg capsule,delayed release(DR/EC) 40 mg PO DAILY fexofenadine 180 mg tablet 180 mg PO DAILY famotidine 20 mg tablet 20 mg PO BID divalproex [Depakote] 500 mg tablet,delayed release (DR/EC) 1,000 mg PO .7 pm Qty: 60 2RF Rx Instructions: Take two tablets at 7 pm quetiapine [Seroquel] 100 mg tablet 100 mg PO BEDTIME Qty: 30 2RF Rx Instructions: Take one tablet at bedtime clonazepam [Klonopin] 0.5 mg tablet 0.5 mg PO TID Qty: 90 1RF Rx Instructions: Take one tablet at 8 am, 2 pm and 8 pm acetaminophen [Tylenol] 325 mg tablet 650 mg PO Q4H PRN (Reason: pain) Qty: 30 0RF ibuprofen 800 mg Tablet 800 mg PO Q8H PRN (Reason: Pain) tamsulosin 0.4 mg capsule 0.4 mg PO DAILY 30 Days Qty: 30 1RF Discharge Orders: Discharge ED (Routine); Ordered 08/02/23 Ordered By: Stefania Do Referrals: Ella Flor FNP [Primary Care Provider] - Discharge Diet: Advance as tolerated Discharge Activity: Resume usual activity Patient Instructions: Depression (ED) Sign Out Sign Out Data: Patient Sign Out occurred on 08/02/23 at 17:23. Patient's care was discussed, and care was transferred from MARIA DEL CARMEN Mares to MARIA DEL CARMEN Ferrara. Coding Level of Care Code ED [employer] External for Chg Fwd Documented by User: Stefania Do MD 08/02/23 17:43 HPI - Psych General: Chief Complaint: Psychiatric Symptoms Stated Complaint: psych eval Time Seen by Provider: 08/02/23 16:01 [facility] ED PFSH: Medical History Panic disorder Nicotine dependence, cigarettes, uncomplicated Nicotine dependence, chewing tobacco, uncomplicated Nicotine dependence due to vaping tobacco product Chronic post-traumatic stress disorder Moderate intellectual disabilities Intermittent explosive disorder in adult severe Psychiatric care Dysuria Course Vital Signs: Vital signs: Vital Signs Temperature 99.2 F 08/02/23 15:59 Pulse Rate 94 08/02/23 15:59 Respiratory Rate 16 08/02/23 15:59 Blood Pressure 145/89 08/02/23 15:59 Pulse Oximetry 99 08/02/23 15:59 Oxygen Delivery Me thod Room Air 08/02/23 15:59 MDM - Psych Medical Decision Making Patient presents here with depression patient was seen by Dr. Ulloa patient's medically cleared he does not feel that he is an active threat to himself or others is discharged him back into [facility] Medical Records I reviewed the patient's medical records. Lab Data I reviewed the patient's lab results. 08/02/23 16:28 08/02/23 16:28 Laboratory Results WBC 8.30 10^3/uL (4.5-13.0) 08/02/23 16:28 RBC 4.73 10^6/uL (3.85-5.65) 08/02/23 16:28 Hgb 14.00 g/dL (13.2-15.6) 08/02/23 16:28 Hct 42.0 % (37-53) 08/02/23 16:28 MCV 88.8 fl (82-101) 08/02/23 16: MCH 29.6 pg (27-33) 08/02/23 16:28 MCHC 33.3 g/dL (30-55) 08/02/23 16:28 RDW 12.6 % (12.1-15.1) 08/02/23 16:28 Plt Count 239 10^3/cmm (157-399) 08/02/23 16:28 MPV 9.9 fL (7.4-10.4) 08/02/23 16:28 Neut % (Auto) 57.2 % 08/02/23 16:28 Lymph % (Auto) 31.6 % 08/02/23 16:28 [place] % (Auto) 7.5 % 08/02/23 16:28 Eos % (Auto) 2.3 % 08/02/23 16:28 Baso % (Auto) 0.8 % 08/02/23 16: Neut # (Auto) 4.75 10^3/uL (1.8-8.0) 08/02/23 16:28 Lymph # (Auto) 2.6 10^3/uL (1.5-6.5) 08/02/23 16:28 [place] # (Auto) 0.6 10^3/uL (0.2-0.9) 08/02/23 16:28 Eos # (Auto) 0.2 10^3/uL (0.0-0.8) 08/02/23 16:28 Baso # (Auto) 0.1 10^3/uL (0.0-0.1) 08/02/23 16:28 Nucleated RBC % (auto) 0 % 08/02/23 16: Nucleated RBCs # 0.0 /100WBC 08/02/23 16:28 Sodium 143 mmol/L (136-145) 08/02/23 16:28 Potassium 4.3 mmol/L (3.5-5.1) 08/02/23 16:28 Chloride 106 mmol/L (98-107) 08/02/23 16:28 Carbon Dioxide 25 mmol/L (22-29) 08/02/23 16:28 Anion Gap 16.3 (5-19) 08/02/23 16:28 BUN 15 mg/dL (6-20) 08/02/23 16:28 Creatinine 0.7 mg/dL (0.7-1.2) 08/02/23 16:28 GFR Calculation 143.8 mL/min (90-130) H 08/02/23 16:28 Glucose 98 mg/dL (65-115) 08/02/23 16:28 Calculated Osmolality 297 mOsm/kg (285-295) H 08/02/23 16:28 Calcium 9.3 mg/dL (8.5-10.5) 08/02/23 16:28 Total Bilirubin 0.2 mg/dL (0.15-1.2) 08/02/23 16:28 AST 39 U/L (0-40) 08/02/23 16:28 ALT 93 U/L (0-41) H 08/02/23 16:28 Alkaline Phosphatase 89 U/L (40-130) 08/02/23 16:28 Total Protein 6.5 g/dL (6.6-8.7) L 08/02/23 16:28 Albumin 4.1 g/dL (3.5-5.2) 08/02/23 16:28 Globulin 2.4 g/dL (1.3-4.6) 08/02/23 16:28 Salicylates < 0.3 mg/dL (3-10) L 08/02/23 16:28 Urine Opiates Screen Negative ng/mL (Negative) 08/02/23 16:15 Acetaminophen < 5.0 ug/mL (10-30) L 08/02/23 16:28 Ur Barbiturates Screen Negative ng/mL (Negative) 08/02/23 16:15 Ur Phencyclidine Scrn Negative ng/mL (Negative) 08/02/23 16:15 Ur Amphetamines Screen Negative ng/mL (Negative) 08/02/23 16:15 U Benzodiazepines Scrn Negative ng/mL (Negative) 08/02/23 16:15 Urine Cocaine Screen Negative ng/mL (Negative) 08/02/23 16:15 U Marijuana (THC) Screen Negative ng/mL (Negative) 08/02/23 16:15 Ethyl Alcohol < 10 mg/dL (0-10) 08/02/23 16:28 No radiology studies performed this visit Discharge Plan Discharge Patient Disposition: Home Clinical Impression: Depression Condition: Stable Prescriptions: No Action omeprazole 20 mg capsule,delayed release(DR/EC) 40 mg PO DAILY fexofenadine 180 mg tablet 180 mg PO DAILY famotidine 20 mg tablet 20 mg PO BID divalproex [Depakote] 500 mg tablet,delayed release (DR/EC) 1,000 mg PO .7 pm Qty: 60 2RF Rx Instructions: Take two tablets at 7 pm quetiapine [Seroquel] 100 mg tablet 100 mg PO BEDTIME Qty: 30 2RF Rx Instructions: Take one tablet at bedtime clonazepam [Klonopin] 0.5 mg tablet 0.5 mg PO TID Qty: 90 1RF Rx Instructions: Take one tablet at 8 am, 2 pm and 8 pm acetaminophen [Tylenol] 325 mg tablet 650 mg PO Q4H PRN (Reason: pain) Qty: 30 0RF ibuprofen 800 mg Tablet 800 mg PO Q8H PRN (Reason: Pain) tamsulosin 0.4 mg capsule 0.4 mg PO DAILY 30 Days Qty: 30 1RF Discharge Orders: Discharge ED (Routine); Ordered 08/02/23 Ordered By: Stefania Do Referrals: Ella Flor FNP [Primary Care Provider] - Discharge Diet: Advance as tolerated Discharge Activity: Resume usual activity Patient Instructions: Depression (ED) Sign Out Sign Out Data: Patient Sign Out occurred on 08/02/23 at 17:23. Patient's care was discussed, and care was transferred from MARIA DEL CARMEN Mares to MARIA DEL CARMEN Ferrara. Coding Level of Care Code ED [employer] External for Chg Fwd Documented by User: MARIA DEL CARMEN Ferrara 08/03/23 01:17 HPI - Psych General: Chief Complaint: Psychiatric Symptoms Stated Complaint: psych eval Time Seen by Provider: 08/02/23 16:01 [facility] ED PFSH: Medical History Panic disorder Nicotine dependence, cigarettes, uncomplicated Nicotine dependence, chewing tobacco, uncomplicated Nicotine dependence due to vaping tobacco product Chronic post-traumatic stress disorder Moderate intellectual disabilities Intermittent explosive disorder in adult severe Psychiatric care Dysuria Course Vital Signs: Vital signs: Vital Signs Temperature 99.2 F 08/02/23 15:59 Pulse Rate 94 08/02/23 15:59 Respiratory Rate 16 08/02/23 15:59 Blood Pressure 145/89 08/02/23 15:59 Pulse Oximetry 99 08/02/23 15:59 Oxygen Delivery Me thod Room Air 08/02/23 15:59 MDM - Psych Medical Decision Making Jemma Traylor PA-C: Transfer of care from Rosa Downing PA-C at 1700. Rosa discussed with me that the situation which has brought the patient in for evaluation today. She indicated that patient has had a medical screening examination and that we are currently waiting on Dr. Ulloa to come see the patient at bedside for further evaluation. Dr. Ulloa came to see the patient and spoke with Dr. Do regarding his recommendations for this patient. Dr. Do at that time assumed care of the patient and was able to discharge him back to his residential care facility. Dr Do: Patient presents here with depression patient was seen by Dr. Ulloa patient's medically cleared he does not feel that he is an active threat to himself or others is [facility] Differential Diagnosis Likely depression; Unlikely acute psychosis, chronic schizophrenia, suicidal ideation, bipolar disorder, drug-induced psychotic disorder or acute anxiety Lab Data 08/02/23 16:28 08/02/23 16: Laboratory Results WBC 8.30 10^3/uL (4.5-13.0) 08/02/23 16: RBC 4.73 10^6/uL (3.85-5.65) 08/02/23 16: Hgb 14.00 g/dL (13.2-15.6) 08/02/23 16:28 Hct 42.0 % (37-53) 08/02/23 16: MCV 88.8 fl (82-101) 08/02/23 16: MCH 29.6 pg (27-33) 08/02/23 16: MCHC 33.3 g/dL (30-55) 08/02/23 16: RDW 12.6 % (12.1-15.1) 08/02/23 16: Plt Count 239 10^3/cmm (157-399) 08/02/23 16: MPV 9.9 fL (7.4-10.4) 08/02/23 16: Neut % (Auto) 57.2 % 08/02/23 16: Lymph % (Auto) 31.6 % 08/02/23 16: [place] % (Auto) 7.5 % 08/02/23 16: Eos % (Auto) 2.3 % 08/02/23 16: Baso % (Auto) 0.8 % 08/02/23 16: Neut # (Auto) 4.75 10^3/uL (1.8-8.0) 08/02/23 16: Lymph # (Auto) 2.6 10^3/uL (1.5-6.5) 08/02/23 16: [place] # (Auto) 0.6 10^3/uL (0.2-0.9) 08/02/23 16: Eos # (Auto) 0.2 10^3/uL (0.0-0.8) 08/02/23 16: Baso # (Auto) 0.1 10^3/uL (0.0-0.1) 08/02/23 16:28 Nucleated RBC % (auto) 0 % 08/02/23 16:28 Nucleated RBCs # 0.0 /100WBC 08/02/23 16:28 Sodium 143 mmol/L (136-145) 08/02/23 16:28 Potassium 4.3 mmol/L (3.5-5.1) 08/02/23 16:28 Chloride 106 mmol/L (98-107) 08/02/23 16:28 Carbon Dioxide 25 mmol/L (22-29) 08/02/23 16:28 Anion Gap 16.3 (5-19) 08/02/23 16:28 BUN 15 mg/dL (6-20) 08/02/23 16:28 Creatinine 0.7 mg/dL (0.7-1.2) 08/02/23 16:28 GFR Calculation 143.8 mL/min (90-130) H 08/02/23 16:28 Glucose 98 mg/dL (65-115) 08/02/23 16:28 Calculated Osmolality 297 mOsm/kg (285-295) H 08/02/23 16:28 Calcium 9.3 mg/dL (8.5-10.5) 08/02/23 16:28 Total Bilirubin 0.2 mg/dL (0.15-1.2) 08/02/23 16:28 AST 39 U/L (0-40) 08/02/23 16:28 ALT 93 U/L (0-41) H 08/02/23 16:28 Alkaline Phosphatase 89 U/L (40-130) 08/02/23 16:28 Total Protein 6.5 g/dL (6.6-8.7) L 08/02/23 16:28 Albumin 4.1 g/dL (3.5-5.2) 08/02/23 16:28 Globulin 2.4 g/dL (1.3-4.6) 08/02/23 16:28 Salicylates < 0.3 mg/dL (3-10) L 08/02/23 16:28 Urine Opiates Screen Negative ng/mL (Negative) 08/02/23 16:15 Acetaminophen < 5.0 ug/mL (10-30) L 08/02/23 16:28 Ur Barbiturates Screen Negative ng/mL (Negative) 08/02/23 16:15 Ur Phencyclidine Scrn Negative ng/mL (Negative) 08/02/23 16:15 Ur Amphetamines Screen Negative ng/mL (Negative) 08/02/23 16:15 U Benzodiazepines Scrn Negative ng/mL (Negative) 08/02/23 16:15 Urine Cocaine Screen Negative ng/mL (Negative) 08/02/23 16:15 U Marijuana (THC) Screen Negative ng/mL (Negative) 08/02/23 16:15 Ethyl Alcohol < 10 mg/dL (0-10) 08/02/23 16:28 Discharge Plan Discharge Patient Disposition: Home Clinical Impression: Depression Condition: Stable Prescriptions: No Action omeprazole 20 mg capsule,delayed release(DR/EC) 40 mg PO DAILY fexofenadine 180 mg tablet 180 mg PO DAILY famotidine 20 mg tablet 20 mg PO BID divalproex [Depakote] 500 mg tablet,delayed release (DR/EC) 1,000 mg PO .7 pm Qty: 60 2RF Rx Instructions: Take two tablets at 7 pm quetiapine [Seroquel] 100 mg tablet 100 mg PO BEDTIME Qty: 30 2RF Rx Instructions: Take one tablet at bedtime clonazepam [Klonopin] 0.5 mg tablet 0.5 mg PO TID Qty: 90 1RF Rx Instructions: Take one tablet at 8 am, 2 pm and 8 pm acetaminophen [Tylenol] 325 mg tablet 650 mg PO Q4H PRN (Reason: pain) Qty: 30 0RF ibuprofen 800 mg Tablet 800 mg PO Q8H PRN (Reason: Pain) tamsulosin 0.4 mg capsule 0.4 mg PO DAILY 30 Days Qty: 30 1RF Discharge Orders: Discharge ED (Routine); Ordered 08/02/23 Ordered By: Stefania Do Referrals: Ella Flor FNP [Primary Care Provider] - Discharge Diet: Advance as tolerated Discharge Activity: Resume usual activity Patient Instructions: Depression (ED) Sign Out Sign Out Data: Patient Sign Out occurred on 08/02/23 at 17:23. Patient's care was discussed, and care was transferred from MARIA DEL CARMEN Mares to MARIA DEL CARMEN Ferrara. Coding Level of Care Code ED [employer]inder External for Edi Mcgill
[2023-08-02 16:41] LABS: Basophils # 0.1 10^3/uL (0.0-0.1); Basophils % 0.8 %; Eosinophils # 0.2 10^3/uL (0.0-0.8); Eosinophils % 2.3 %; Lymphocytes # 2.6 10^3/uL (1.5-6.5); Lymphocytes % 31.6 %; Mean Corpuscular HGB Conc 33.3 g/dL (30-55); Mean Corpuscular Hemoglobin 29.6 pg (27-33); Mean Corpuscular Volume 88.8 fl (82-101); Mean Platelet Volume 9.9 fL (7.4-10.4); Monocytes # 0.6 10^3/uL (0.2-0.9); Monocytes % 7.5 %; Neutrophils # 4.75 10^3/uL (1.8-8.0); Neutrophils % 57.2 %; Nucleated Red Blood Cells % 0 %; Platelet Count 239 10^3/cmm (157-399); Red Blood Count 4.73 10^6/uL (3.85-5.65); Red Cell Distribution Width 12.6 % (12.1-15.1)
[2023-08-02 16:52] LABS: Amphetamines Screen Urine Negative (Negative); Barbiturates Screen Urine Negative (Negative); Benzodiazepines Screen Urine Negative (Negative); Cocaine Screen Urine Negative (Negative); Opiate Screen Urine Negative (Negative); PCP Screen Urine Negative (Negative); THC Screen Urine Negative (Negative)
[2023-08-02 16:58] LABS: Acetaminophen < 5.0 ug/mL (10-30); Alanine Aminotransferase 93 U/L (0-41); Albumin Level 4.1 g/dL (3.5-5.2); Alcohol Level < 10 mg/dL (0-10); Alkaline Phosphatase 89 U/L (40-130); Anion Gap 16.3 (5-19); Aspartate Amino Transferase 39 U/L (0-40); Blood Urea Nitrogen 15 mg/dL (6-20); Calcium 9.3 mg/dL (8.5-10.5); Carbon Dioxide 25 mmol/L (22-29); Chloride 106 mmol/L (98-107); Globulin 2.4 g/dL (1.3-4.6); Glomerular Filtration Rate 143.8 mL/min (90-130); Glucose 98 mg/dL (65-115); Osmolality Calculated 297 mOsm/kg (285-295); Potassium 4.3 mmol/L (3.5-5.1); Salicylate < 0.3 mg/dL (3-10); Sodium 143 mmol/L (136-145); Total Bilirubin 0.2 mg/dL (0.15-1.2); Total Protein 6.5 g/dL (6.6-8.7)
== END 2023-08-02 18:24 | disposition home or self-care (01) ==
PROVIDERS: Physician Assistant; Emergency Provider Emergency Medicine; PCP Nurse Practitioner Family
DX: F32.A Depression, unspecified (principal)
CPT/HCPCS: 36415; 80053; 80306; 80307; 85025; 99283

== ENCOUNTER → 2023-08-07 15:32 | Outpatient (BNVA) | payer MEDICAID, OTHER, SELFPAY | PROVIDERS: PCP Nurse Practitioner Family; Visit Provider Nurse Practitioner Psychiatric/Mental Health | DX: Z79.899 Other long term (current) drug therapy (principal) | CPT/HCPCS: 80053; 80164 ==

== ENCOUNTER 2023-08-26 09:00 | Outpatient (CLI) | payer MEDICAID, SELFPAY | END 2023-08-26 09:01 | disposition home or self-care (01) | LOC: SLEEP 08-27 16:57 | PROVIDERS: PCP Nurse Practitioner Family; Visit Provider Otolaryngology | DX: G47.10 Hypersomnia, unspecified (principal); J35.1 Hypertrophy of tonsils; R06.83 Snoring; R09.02 Hypoxemia | CPT/HCPCS: G0399 ==

== ENCOUNTER 2023-11-03 21:48 | Inpatient (IN) | payer MEDICAID, SELFPAY ==
[2023-11-03 21:49] VITALS: BP 155/105; PULSE 91; RESP 18; TEMP 36.6; O2SAT 98; BMI 38.2
[2023-11-03 22:26] LABS: Basophils # 0.1 10^3/uL (0.0-0.1); Basophils % 0.8 %; Eosinophils # 0.1 10^3/uL (0.0-0.8); Eosinophils % 0.9 %; Hematocrit 44.4 % (37-53); Lymphocytes # 2.2 10^3/uL (1.5-6.5); Lymphocytes % 29.3 %; Mean Corpuscular HGB Conc 32.9 g/dL (30-55); Mean Corpuscular Hemoglobin 29.6 pg (27-33); Mean Corpuscular Volume 90.1 fl (82-101); Mean Platelet Volume 10.3 fL (7.4-10.4); Monocytes # 0.6 10^3/uL (0.2-0.9); Monocytes % 8.3 %; Neutrophils # 4.58 10^3/uL (1.8-8.0); Neutrophils % 60.2 %; Nucleated Red Blood Cells % 0 %; Platelet Count 225 10^3/cmm (157-399); Red Blood Count 4.93 10^6/uL (3.85-5.65); Red Cell Distribution Width 12.5 % (12.1-15.1); White Blood Count 7.61 10^3/uL (4.5-13.0)
[2023-11-03 22:29] LABS: Add Urine Microscopic? NO; Charge for UA Resulting for Rev
[2023-11-03 22:38] LABS: Bilirubin Urine Neg (Negative); Blood Urine Neg (Negative); Glucose Urine UA Norm (Normal); Ketones Urine Negative (Negative); Leukocyte Esterase Urine Negative (Negative); Nitrate Urine Negative (Negative); Protein Urine Neg (Negative); Specific Gravity, Urine 1.015 (1.005-1.030); Urine Appearance Clear (CLEAR); Urine Color Yellow (Yellow); Urobilinogen Urine Neg (Negative); pH Urine 6 (5-7)
[2023-11-03 22:39] VITALS: BP 143/84
[2023-11-03 22:41] LABS: Amphetamines Screen Urine Negative (Negative); Barbiturates Screen Urine Negative (Negative); Benzodiazepines Screen Urine Positive (Negative); Cocaine Screen Urine Negative (Negative); Opiate Screen Urine Negative (Negative); PCP Screen Urine Negative (Negative); THC Screen Urine Negative (Negative)
--- NOTE | 2023-11-03 22:43 | ED.C_ITS ---
HPI - Psych 2 General: Chief Complaint: Psychiatric Symptoms Stated Complaint: SI/HI Time Seen by Provider: 11/03/23 21:54 History of Present Illness: 18-year-old male presenting from a [facility] environment. He presents with self-harm activities including trying to burn himself on a hot water heater earlier in the evening. His staff notes that he has become more labile in the last couple of days with increased agitation, and suicidal ideation as well as statements. Medication changes have been made recently, but notes she had a helping. He is free of acute illness otherwise. Review of Systems 2 Const: Denies: fever(s) or chills Card: Denies: chest pain Resp: Denies: dyspnea GI: Denies: abdominal pain or vomiting PFSH ED 2 PFSH: Medical History Panic disorder Nicotine dependence, cigarettes, uncomplicated Nicotine dependence, chewing tobacco, uncomplicated Nicotine dependence due to vaping tobacco product Chronic post-traumatic stress disorder Moderate intellectual disabilities Intermittent explosive disorder in adult severe Psychiatric care Dysuria Physical Exam 2 Const: COMMON NORMALS: no acute distress GENERAL APPEARANCE: cooperative; not ill appearing and not frail appearing HENMT: COMMON NORMALS: normocephalic, atraumatic and Normal external nose present HEAD & SCALP: normocephalic and atraumatic FACE & SINUS: normal facial exam and face symmetric NOSE: Normal external nose present Eye: COMMON NORMALS: Equal, round and reactive pupils present and EOMs intact bilaterally PUPIL: Yes Equal, round and reactive pupils present Neck/C-Spine: GENERAL: Yes trachea midline Chest: CHEST: Yes Symmetrical chest wall rise Resp: COMMON NORMALS: normal respiratory effort, No retractions, No use of accessory muscles and clear to auscultation bilaterally AUSCULTATION: clear to auscultation bilaterally Cardio: COMMON NORMALS: regular rate and regular rhythm RATE: regular rate RHYTHM: regular rhythm GI: COMMON NORMALS: Normal to inspection, nondistended, normoactive bowel sounds present Extremity: COMMON NORMALS: no pedal edema Neuro: SUMMER COMA SCALE: document GCS findings [place] coma scale eye opening: Spontaneous [place] coma scale verbal response: Orientated [place] coma scale motor response: Obey commands [place] coma scale total score: 15 S ENSORY EXAM: Yes extremities (intact) Psych: COMMON NORMALS: speech normal SPEECH: Yes normal speech Skin: COMMON NORMALS: no rashes or lesions noted GENERAL SKIN EXAM: no rashes or lesions noted Course 2 Vital Signs: Vital signs: Vital Signs Temperature 98.3 F 11/04/23 00:21 Pulse Rate 96 11/04/23 00:21 Respiratory Rate 20 H 11/04/23 00:21 Blood Pressure 139/63 11/04/23 00:21 Pulse Oximetry 97 11/04/23 00:21 Oxygen Delivery Me thod Room Air 11/04/23 00:02 MDM - Psych Medical Decision Making Spoke with psychiatry about this patient. He is medically stable. They agree to see in the neuropsychiatric unit. Lab Data 11/03/23 22:21 11/03/23 22:21 Laboratory Results WBC 7.61 10^3/uL (4.5-13.0) 11/03/23 22:21 RBC 4.93 10^6/uL (3.85-5.65) 11/03/23 22:21 Hgb 14.60 g/dL (13.2-15.6) 11/03/23 22:21 Hct 44.4 % (37-53) 11/03/23 22:21 MCV 90.1 fl (82-101) 11/03/23 22:21 MCH 29.6 pg (27-33) 11/03/23 22:21 MCHC 32.9 g/dL (30-55) 11/03/23 22:21 RDW 12.5 % (12.1-15.1) 11/03/23 22:21 Plt Count 225 10^3/cmm (157-399) 11/03/23 22:21 MPV 10.3 fL (7.4-10.4) 11/03/23 22:21 Neut % (Auto) 60.2 % 11/03/23 22:21 Lymph % (Auto) 29.3 % 11/03/23 22:21 [place] % (Auto) 8.3 % 11/03/23 22:21 Eos % (Auto) 0.9 % 11/03/23 22:21 Baso % (Auto) 0.8 % 11/03/23 22:21 Neut # (Auto) 4.58 10^3/uL (1.8-8.0) 11/03/23 22:21 Lymph # (Auto) 2.2 10^3/uL (1.5-6.5) 11/03/23 22:21 [place] # (Auto) 0.6 10^3/uL (0.2-0.9) 11/03/23 22:21 Eos # (Auto) 0.1 10^3/uL (0.0-0.8) 11/03/23 22:21 Baso # (Auto) 0.1 10^3/uL (0.0-0.1) 11/03/23 22:21 Nucleated RBC % (auto) 0 % 11/03/23 22:21 Nucleated RBCs # 0.0 /100WBC 11/03/23 22:21 Sodium 140 mmol/L (136-145) 11/03/23 22:21 Potassium 4.4 mmol/L (3.5-5.1) 11/03/23 22:21 Chloride 105 mmol/L (98-107) 11/03/23 22:21 Carbon Dioxide 23 mmol/L (22-29) 11/03/23 22:21 Anion Gap 16.4 (5-19) 11/03/23 22:21 BUN 11 mg/dL (6-20) 11/03/23 22:21 Creatinine 0.9 mg/dL (0.7-1.2) 11/03/23 22:21 GFR Calculation 107.6 mL/min (90-130) 11/03/23 22:21 Glucose 92 mg/dL (65-115) 11/03/23 22:21 Calculated Osmolality 289 mOsm/kg (285-295) 11/03/23 22:21 Calcium 9.3 mg/dL (8.5-10.5) 11/03/23 22:21 Total Bilirubin 0.3 mg/dL (0.15-1.2) 11/03/23 22:21 AST 36 U/L (0-40) 11/03/23 22:21 ALT 92 U/L (0-41) H 11/03/23 22:21 Alkaline Phosphatase 84 U/L (40-130) 11/03/23 22:21 Total Protein 7.1 g/dL (6.6-8.7) 11/03/23 22:21 Albumin 4.5 g/dL (3.5-5.2) 11/03/23 22:21 Globulin 2.6 g/dL (1.3-4.6) 11/03/23 22:21 Urine Color Yellow (Yellow) 11/03/23 22:07 Urine Appearance Clear (CLEAR) 11/03/23 22:07 Urine pH 6 (5-7) 11/03/23 22:07 Ur Specific [place] 1.015 (1.005-1.030) 11/03/23 22:07 Urine Protein Neg (Negative) 11/03/23 22:07 Urine Glucose (UA) Norm (Normal) 11/03/23 22:07 Urine Ketones Negative (Negative) 11/03/23 22:07 Urine Blood Neg (Negative) 11/03/23 22:07 Urine Nitrate Negative (Negative) 11/03/23 22:07 Urine Bilirubin Neg (Negative) 11/03/23 22:07 Urine Urobilinogen Neg mg/dL (Negative) 11/03/23 22:07 Ur Leukocyte Esterase Negative (Negative) 11/03/23 22:07 Salicylates < 0.3 mg/dL (3-10) L 11/03/23 22:21 Urine Opiates Screen Negative ng/mL (Negative) 11/03/23 22:07 Acetaminophen < 5.0 ug/mL (10-30) L 11/03/23 22:21 Ur Barbiturates Screen Negative ng/mL (Negative) 11/03/23 22:07 Valproic Acid 103.6 ug/mL (50-100) H 11/03/23 22:21 Ur Phencyclidine Scrn Negative ng/mL (Negative) 11/03/23 22:07 Ur Amphetamines Screen Negative ng/mL (Negative) 11/03/23 22:07 U Benzodiazepines Scrn Positive ng/mL (Negative) H 11/03/23 22:07 Urine Cocaine Screen Negative ng/mL (Negative) 11/03/23 22:07 U Marijuana (THC) Screen Negative ng/mL (Negative) 11/03/23 22:07 Ethyl Alcohol < 10 mg/dL (0-10) 11/03/23 22:21 No radiology studies performed this visit Discharge Plan Discharge Patient Disposition: Admitted As Inpatient Admit Provider: Andrew Ulloa Clinical Impression: Suicidal ideation Coding Level of Care Code ED Business Continuity Management Director for Edi Mcgill
[2023-11-03 22:45] LABS: Valproic Acid Level 103.6 ug/mL (50-100)
[2023-11-03 22:51] LABS: Alanine Aminotransferase 92 U/L (0-41); Albumin Level 4.5 g/dL (3.5-5.2); Alkaline Phosphatase 84 U/L (40-130); Anion Gap 16.4 (5-19); Aspartate Amino Transferase 36 U/L (0-40); Blood Urea Nitrogen 11 mg/dL (6-20); Calcium 9.3 mg/dL (8.5-10.5); Carbon Dioxide 23 mmol/L (22-29); Chloride 105 mmol/L (98-107); Creatinine Clr Calc Pharmacy 186.2163; Globulin 2.6 g/dL (1.3-4.6); Glomerular Filtration Rate 107.6 mL/min (90-130); Glucose 92 mg/dL (65-115); Osmolality Calculated 289 mOsm/kg (285-295); Potassium 4.4 mmol/L (3.5-5.1); Sodium 140 mmol/L (136-145); Total Bilirubin 0.3 mg/dL (0.15-1.2); Total Protein 7.1 g/dL (6.6-8.7)
[2023-11-03 22:52] LABS: Acetaminophen < 5.0 ug/mL (10-30); Alcohol Level < 10 mg/dL (0-10); Salicylate < 0.3 mg/dL (3-10)
[2023-11-03] MEDS: quetiapine 300 mg Tablet 400 MG PO (23:16)
[2023-11-03] MEDS: divalproex DR 500 mg Tablet 1000 MG PO (23:16)
[2023-11-03] MEDS: diazePAM 5 mg Tablet 10 MG PO (23:16)
[2023-11-04 00:11] VITALS: BP 143/84; PULSE 91; RESP 18; TEMP 36.6; O2SAT 98
[2023-11-04 00:21] VITALS: BP 139/63; PULSE 96; RESP 20; TEMP 36.8; O2SAT 97
[2023-11-04 06:00] VITALS: BP 100/64; PULSE 89; RESP 16; O2SAT 99
--- NOTE | 2023-11-04 10:28 | PC.OT ---
OT EVALUATION ORDERS RECEIVED; ATTEMPTED BUT PATIENT SLEEPING SOUNDLY. WILL ATTEMPT AGAIN AT A LATER TIME.
[2023-11-04] MEDS: nicotine 2 mg Gum BUCCAL (10:40)
[2023-11-04] MEDS: divalproex DR 500 mg Tablet PO (11:23)
[2023-11-04] MEDS: docusate sodium 100 mg Capsule PO (11:24)
[2023-11-04] MEDS: tamsulosin 0.4 mg Capsule 0.400000000000000022 MG PO (11:24)
[2023-11-04] MEDS: pantoprazole DR 40 mg Tablet PO (11:24)
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
[2023-11-04] MEDS: nicotine 4 mg lozenge MUCOUS MEM ×2 (12:50→18:06)
[2023-11-04] MEDS: atorvastatin 40 mg Tablet PO (12:50)
[2023-11-04] MEDS: OLANZapine 5 mg ODT PO (12:55)
--- NOTE | 2023-11-04 12:59 | PC.NURSE ---
patient reporting anxiety and agitation. Patient admits to being agitated about the presence of other men, and the loud noises. This nurse talked with patient. Administered zyprexa 5mg ODT to patient. patient agreed that he would let staff know if the medication wasn't helping.
[2023-11-04 14:00] VITALS: BP 162/93; PULSE 113; RESP 18; TEMP 36.8; O2SAT 97
--- NOTE | 2023-11-04 15:42 | PC.NURSE ---
refused scheduled Fiber-lax
[2023-11-04] MEDS: diazePAM 5 mg Tablet PO ×2 (16:05→20:03)
[2023-11-04 17:39] VITALS: BP 127/67; PULSE 98; RESP 20; TEMP 36.4; O2SAT 98
[2023-11-04] MEDS: famotidine 20 mg Tablet PO (17:46)
[2023-11-04 19:26] VITALS: BP 126/82; PULSE 102; RESP 18; TEMP 36.7; O2SAT 94
[2023-11-04] MEDS: quetiapine 100 mg Tablet 400 MG PO (20:02)
[2023-11-04] MEDS: divalproex DR 500 mg Tablet 1000 MG PO (20:02)
[2023-11-04] MEDS: divalproex DR 250 mg Tablet PO (20:03)
[2023-11-05 06:00] VITALS: BP 135/83; PULSE 97; RESP 16; TEMP 36.5; O2SAT 97
[2023-11-05] MEDS: fexofenadine 60 mg Tablet 180 MG PO (09:34)
[2023-11-05] MEDS: divalproex DR 500 mg Tablet PO (09:35)
[2023-11-05] MEDS: famotidine 20 mg Tablet PO ×2 (09:35→17:21)
[2023-11-05] MEDS: tamsulosin 0.4 mg Capsule 0.400000000000000022 MG PO (09:35)
[2023-11-05] MEDS: magnesium oxide 400 mg tablet PO (09:35)
[2023-11-05] MEDS: nicotine 4 mg lozenge MUCOUS MEM ×3 (09:35→20:29)
[2023-11-05] MEDS: calcium polycarbophil 625 mg Tablet PO ×3 (09:35→20:27)
[2023-11-05] MEDS: docusate sodium 100 mg Capsule PO (09:35)
[2023-11-05] MEDS: pantoprazole DR 40 mg Tablet PO (09:35)
[2023-11-05] MEDS: atorvastatin 40 mg Tablet PO (09:35)
[2023-11-05] MEDS: diazePAM 5 mg Tablet PO ×3 (09:36→20:28)
[2023-11-05 13:46] VITALS: BP 145/82; PULSE 118; RESP 16; TEMP 36.9; O2SAT 97
[2023-11-05] MEDS: hyDROXYzine 25 mg Capsule 50 MG PO (14:39)
--- NOTE | 2023-11-05 14:45 | W.PM.NPUPNS ---
Subjective NPU Subjective: Patient presented today reporting that he is identifying the stressors at his facility as the people that are not able to be true to their word. This is a continuation of the conversation at admission. He endorsed frustration and having not been told by them that this would change and having fear that if he goes back without them saying that that he will be stuck without the changes. He reports that he feels much of the time that he is just a paycheck for them and they do not care about how he is feeling and how it feels that have them renege on their agreements. He denies any side effects to his medications and continues to report no need for any changes. Mental Status Exam MSE Comments: This is an obese versus morbidly obese white male in hospital scrubs with limited grooming and eye contact. Poor hygiene with noticeable body odor. No abnormal movements except for mild psychomotor agitation when discussing the situation at the [facility]. Cooperative with exam in mild to moderate distress. Speech was normal rate and volume. Mood described as a little better today, affect slightly irritable. Thought process organized. Thought content: Patient denied suicidal or homicidal ideation, there were no delusions reported or noted, he denied any auditory or visual hallucinations. Attention and concentration were intact and memory appeared reliable to some degree but questionable at others, but none were formally tested. He is alert and oriented x3. Insight appears fair, judgment appears limited and impulse control is limited. Intellectual ability is limited versus impaired. Vitals/I&O/Wt Last Vital Signs Temp 98.5 F 11/05/23 13:46 Pulse 118 H 11/05/23 13:46 Resp 16 11/05/23 13:46 BP 145/82 11/05/23 13:46 Pulse Ox 97 11/05/23 13:46 O2 Del Method Room Air 11/05/23 13:46 Weight last 48 hrs Weight 131.542 kg Data NPU 11/03/23 22:21 11/03/23 22:21 A&P Assessment and plan (1) Suicidal ideation: (2) Fracture dislocation of joint: (3) Nondisplaced fracture of fifth left metatarsal bone: Qualifiers: Encounter type: subsequent encounter Fracture type: closed Fracture healing: with routine healing Qualified Code(s): S92.355D - Nondisplaced fracture of fifth metatarsal bone, left foot, subsequent encounter for fracture with routine healing (4) Left foot pain: (5) Dysuria: (6) Intellectual disability: (7) PTSD (post-traumatic stress disorder): (8) Intermittent explosive disorder in adult: Plan This is a 18-year-old white male with a long history of trauma and mental health issues and genetic loading for mental health and addiction issues who presents once again reporting having an outburst against the backdrop of a conflict of possible power struggle with staff leading to suicidal/homicidal ideation. 1. Continue current medication. 2. Continue every 15 minute checks for safety. 3. Encourage individual, group and milieu therapies. 4. Encourage sober living treatment after discharge at the highest level of care to which he is willing to commit. 5. As with previous hospitalizations we will evaluate whether this is linked to intermittent explosive disorder with his diagnosis and baseline outbursts versus a side of recent functional decline. Involuntary Hold Information 96 Hour Hold: 96 Hour Involuntary Admission: No Attestations NPU Medical Necessity Statement*: Inpatient hospitalization is medically necessary and the clinically appropriate intervention at this time. We will monitor medications and make changes as indicated. Likely length of stay 1-3 days. Coding Level of Care Code Acute Code for [facility] Fwd Diagnoses Suicidal ideation R45.851 Fracture dislocation of joint T14.8XXA Closed nondisplaced fracture of fifth metatarsal bone of left foot with routine healing, subsequent encounter S92.355D Encounter type: subsequent encounter Fracture type: closed Fracture healing: with routine healing Left foot pain M79.672 Dysuria R30.0 Intellectual disability F79 PTSD (post-traumatic stress disorder) F43.10 Intermittent explosive disorder in adult F63.81
[2023-11-05] MEDS: acetaminophen 325 mg Tablet 650 MG PO (17:24)
[2023-11-05 19:30] VITALS: BP 108/63; PULSE 100; RESP 18; TEMP 36.6; O2SAT 97
[2023-11-05] MEDS: divalproex DR 250 mg Tablet PO (20:27)
[2023-11-05] MEDS: quetiapine 100 mg Tablet 400 MG PO (20:28)
[2023-11-05] MEDS: divalproex DR 500 mg Tablet 1000 MG PO (20:28)
[2023-11-06 06:00] VITALS: BP 130/81; PULSE 78; RESP 17; O2SAT 99
[2023-11-06] MEDS: fexofenadine 60 mg Tablet 180 MG PO (08:48)
[2023-11-06] MEDS: calcium polycarbophil 625 mg Tablet PO ×2 (08:48→14:20)
[2023-11-06] MEDS: magnesium oxide 400 mg tablet PO (08:48)
[2023-11-06] MEDS: pantoprazole DR 40 mg Tablet PO (08:48)
[2023-11-06] MEDS: tamsulosin 0.4 mg Capsule 0.400000000000000022 MG PO (08:48)
[2023-11-06] MEDS: famotidine 20 mg Tablet PO (08:49)
[2023-11-06] MEDS: divalproex DR 500 mg Tablet PO (08:49)
[2023-11-06] MEDS: docusate sodium 100 mg Capsule PO (08:49)
[2023-11-06] MEDS: diazePAM 5 mg Tablet PO ×2 (08:49→14:20)
[2023-11-06] MEDS: atorvastatin 40 mg Tablet PO (08:49)
[2023-11-06] MEDS: nicotine 4 mg lozenge MUCOUS MEM (12:19)
[2023-11-06 14:00] VITALS: BP 124/74; PULSE 97; RESP 20; TEMP 36.7; O2SAT 93
[2023-11-06 14:48] VITALS: BP 174/115; PULSE 109; RESP 16; TEMP 36.4; O2SAT 95
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
[2023-11-06 16:24] VITALS: BP 174/115; PULSE 109; RESP 16; TEMP 36.4; O2SAT 95
== END 2023-11-06 16:41 | disposition home or self-care (01) | DRG 883 ==
LOC: ER 21:54 → NP 23:59
PROVIDERS: Admitting Provider Psychiatry & Neurology Psychiatry; Emergency Provider Emergency Medicine; PCP Nurse Practitioner Family; Visit Provider Psychiatry & Neurology Psychiatry
DX: F63.81 Intermittent explosive disorder (principal); R45.851 Suicidal ideations; F43.12 Post-traumatic stress disorder, chronic; F79 Unspecified intellectual disabilities
CPT/HCPCS: 80053; 80164; 80306; 80307; 81003; 85025; 97150; 97165; 99285

== ENCOUNTER 2024-02-03 14:21 | Inpatient (IN) | payer MEDICAID, SELFPAY ==
[2024-02-03 14:22] VITALS: BP 148/91; PULSE 102; RESP 20; TEMP 37.2; O2SAT 98; BMI 50.1
--- NOTE | 2024-02-03 14:40 | ED.C_ITS ---
HPI - Psych 2 General: Chief Complaint: Psychiatric Symptoms Stated Complaint: si Time Seen by Provider: 02/03/24 14:21 Source: patient Limitations: no limitations History of Present Illness: 18-year-old male states he has been havi ng suicidal ideations. He states he has a plan of cutting his wrist he no longer wants to live anymore and has had previous attempts in the past he denies any worsening improving factors. Associated symptoms: Reports depression and suicidal ideation Review of Systems 2 Const: Denies: fever(s), chills, body aches or change in appetite ENMT: Denies: throat pain or dental pain Card: Denies: chest pain Resp: Denies: dyspnea GI: Denies: abdominal pain, nausea, vomiting or diarrhea Musc: Denies: neck pain or back pain Skin/Breast: Denies: rash Neuro: Denies: headache(s) Psych: Reports: depression and suicidal ideation PFS ED 2 PFSH: Medical History Panic disorder Nicotine dependence, cigarettes, uncomplicated Nicotine dependence, chewing tobacco, uncomplicated Nicotine dependence due to vaping tobacco product Chronic post-traumatic stress disorder Moderate intellectual disabilities Intermittent explosive disorder in adult severe Psychiatric care Dysuria Physical Exam 2 Const: COMMON NORMALS: no acute distress, patient oriented x3 and healthy appearing HENMT: COMMON NORMALS: normocephalic and atraumatic HEAD & SCALP: n ormocephalic and atraumatic Eye: COMMON NORMALS: conjunctivae normal CONJUNCTIVA: Yes conjunctivae normal Neck/C-Spine: COMMON NORMALS: full ROM and supple Chest: COMMONS NORMALS: normal inspection of the chest Resp: COMMON NORMALS: normal respiratory effort Cardio: COMMON NORMALS: regular rate, regular rhythm and No murmurs present (Cardio) RATE: regular rate RHYTHM: regular rhythm Extremity: COMMON NORMALS: normal to inspection and full ROM Neuro: COMMON NORMALS: patient oriented x3, moves all extremities and no focal motor deficits Psych: COMMON NORMALS: mental status grossly normal, Normal thought process present and cooperative MOOD & AFFECT: Yes depressed mood THOUGHT PROCESS: Normal thought process present THOUGHT CONTENT: Yes Suicidality present Skin: COMMON NORMALS: no rashes or lesions noted and no wounds GENERAL SKIN EXAM: no rashes or lesions noted Course 2 Vital Signs: Vital signs: Vital Signs Temperature 98.9 F 02/03/24 14:22 Pulse Rate 102 H 02/03/24 14:22 Respiratory Rate 20 H 02/03/24 14:22 Blood Pressure 148/91 02/03/24 14:22 Pulse Oximetry 98 02/03/24 14:22 Oxygen Delivery Me thod Room Air 02/03/24 14:22 MDM - Psych Medical Decision Making Patient presents for suicidal ideations he is medically cleared I spoke to psychiatrist and will admit. Medical Records I reviewed the patient's medical records. Lab Data I reviewed the patient's lab results. 02/03/24 15:01 02/03/24 15:01 Laboratory Results WBC 6.41 10^3/uL (4.5-13.0) 02/03/24 15:01 RBC 4.75 10^6/uL (3.85-5.65) 02/03/24 15:01 Hgb 13.80 g/dL (13.2-15.6) 02/03/24 15:01 Hct 40.7 % (37-53) 02/03/24 15:01 MCV 85.7 fl (82-101) 02/03/24 15:01 MCH 29.1 pg (27-33) 02/03/24 15:01 MCHC 33.9 g/dL (30-55) 02/03/24 15:01 RDW 12.5 % (12.1-15.1) 02/03/24 15:01 Plt Count 207 10^3/cmm (157-399) 02/03/24 15:01 MPV 9.4 fL (7.4-10.4) 02/03/24 15:01 Neut % (Auto) 56.0 % 02/03/24 15:01 Lymph % (Auto) 31.4 % 02/03/24 15:01 Briscoe % (Auto) 9.5 % 02/03/24 15:01 Eos % (Auto) 1.7 % 02/03/24 15:01 Baso % (Auto) 0.5 % 02/03/24 15:01 Neut # (Auto) 3.59 10^3/uL (1.8-8.0) 02/03/24 15:01 Lymph # (Auto) 2.0 10^3/uL (1.5-6.5) 02/03/24 15:01 Briscoe # (Auto) 0.6 10^3/uL (0.2-0.9) 02/03/24 15:01 Eos # (Auto) 0.1 10^3/uL (0.0-0.8) 02/03/24 15:01 Baso # (Auto) 0.0 10^3/uL (0.0-0.1) 02/03/24 15:01 Nucleated RBC % (auto) 0 % 02/03/24 15:01 Nucleated RBCs # 0.0 /100WBC 02/03/24 15:01 Sodium 140 mmol/L (136-145) 02/03/24 15:01 Potassium 4.4 mmol/L (3.5-5.1) 02/03/24 15:01 Chloride 104 mmol/L (98-107) 02/03/24 15:01 Carbon Dioxide 25 mmol/L (22-29) 02/03/24 15:01 Anion Gap 15.4 (5-19) 02/03/24 15:01 BUN 14 mg/dL (6-20) 02/03/24 15:01 Creatinine 1.0 mg/dL (0.7-1.2) 02/03/24 15:01 GFR Calculation 95.3 mL/min (90-130) 02/03/24 15:01 Glucose 136 mg/dL (65-115) H 02/03/24 15:01 Calculated Osmolality 293 mOsm/kg (285-295) 02/03/24 15:01 Calcium 8.5 mg/dL (8.5-10.5) 02/03/24 15:01 Total Bilirubin 0.4 mg/dL (0.15-1.2) 02/03/24 15:01 AST 39 U/L (0-40) 02/03/24 15:01 ALT 76 U/L (0-41) H 02/03/24 15:01 Alkaline Phosphatase 85 U/L (40-130) 02/03/24 15:01 Total Protein 6.5 g/dL (6.6-8.7) L 02/03/24 15:01 Albumin 3.9 g/dL (3.5-5.2) 02/03/24 15:01 Globulin 2.6 g/dL (1.3-4.6) 02/03/24 15:01 Salicylates < 0.3 mg/dL (3-10) L 02/03/24 15:01 Urine Opiates Screen Negative ng/mL (Negative) 02/03/24 14:45 Acetaminophen < 5.0 ug/mL (10-30) L 02/03/24 15:01 Ur Barbiturates Screen Negative ng/mL (Negative) 02/03/24 14:45 Ur Phencyclidine Scrn Negative ng/mL (Negative) 02/03/24 14:45 Ur Amphetamines Screen Negative ng/mL (Negative) 02/03/24 14:45 U Benzodiazepines Scrn Positive ng/mL (Negative) H 02/03/24 14:45 Urine Cocaine Screen Negative ng/mL (Negative) 02/03/24 14:45 U Marijuana (THC) Screen Negative ng/mL (Negative) 02/03/24 14:45 Ethyl Alcohol < 10 mg/dL (0-10) 02/03/24 15:01 No radiology studies performed this visit Discharge Plan Discharge Patient Disposition: Admitted As Inpatient Clinical Impression: Suicidal ideation Condition: Stable Prescriptions: No Action fexofenadine 180 mg tablet 180 mg PO DAILY famotidine 20 mg tablet 40 mg PO BID docusate sodium 100 mg capsule 100 mg PO DAILY pantoprazole 40 mg tablet,delayed release (DR/EC) 40 mg PO DAILY rosuvastatin 10 mg tablet 10 mg PO DAILY cholecalciferol (vitamin D3) 1,250 mcg (50,000 unit) capsule See Rx Instructions .ROUTE .COMPLEX Rx Instructions: 50,000 unit orally EVERY SATURDAY AT 0800 magnesium oxide 400 mg magnesium tablet 400 mg PO DAILY calcium polycarbophil [Fiber (calcium polycarbophil)] 625 mg tablet 3 mg PO TID lactase 3,000 unit tablet 3,000 unit PO ONCE PRN (Reason: Constipation) Rx Instructions: administer with meals and/or snacks All Day Allergy (cetirizine) 10 mg capsule 10 mg PO DAILY PRN (Reason: Allergy Symptoms) quetiapine [Seroquel] 400 mg tablet 400 mg PO BEDTIME Qty: 30 6RF Rx Instructions: Take one tablet at bedtime Depakote 250 mg tablet,delayed release (DR/EC) 250 mg PO .8 pm Qty: 30 4RF Rx Instructions: Take one tablet at 8 pm with 1000 mg, total dose 1250 mg divalproex [Depakote] 500 mg tablet,delayed release (DR/EC) 1,000 mg PO .8 pm Qty: 60 4RF Rx Instructions: Take two tablets with 250 mg tab at 8pm, total dose 1250 mg diazepam [Valium] 5 mg tablet 5 mg PO TID Qty: 21 4RF Rx Instructions: Take one tablet at 10 am, 4 pm and 10 pm tamsulosin 0.4 mg capsule 0.4 mg PO DAILY 30 Days Qty: 30 1RF benzocaine 10 % Gel 1 applic MUCOUS MEMBRANE TID PRN (Reason: Toothache) Referrals: Ella Flor FNP [Primary Care Provider] - Coding Level of Care Code ED Medical Superintendent for Edi Mcgill
[2024-02-03 15:08] LABS: Basophils % 0.5 %; Eosinophils # 0.1 10^3/uL (0.0-0.8); Eosinophils % 1.7 %; Hematocrit 40.7 % (37-53); Lymphocytes % 31.4 %; Mean Corpuscular HGB Conc 33.9 g/dL (30-55); Mean Corpuscular Hemoglobin 29.1 pg (27-33); Mean Corpuscular Volume 85.7 fl (82-101); Mean Platelet Volume 9.4 fL (7.4-10.4); Monocytes # 0.6 10^3/uL (0.2-0.9); Monocytes % 9.5 %; Neutrophils # 3.59 10^3/uL (1.8-8.0); Nucleated Red Blood Cells % 0 %; Platelet Count 207 10^3/cmm (157-399); Red Blood Count 4.75 10^6/uL (3.85-5.65); Red Cell Distribution Width 12.5 % (12.1-15.1); White Blood Count 6.41 10^3/uL (4.5-13.0)
[2024-02-03 15:10] LABS: Amphetamines Screen Urine Negative (Negative); Barbiturates Screen Urine Negative (Negative); Benzodiazepines Screen Urine Positive (Negative); Cocaine Screen Urine Negative (Negative); Opiate Screen Urine Negative (Negative); PCP Screen Urine Negative (Negative); THC Screen Urine Negative (Negative)
[2024-02-03 15:28] LABS: Alanine Aminotransferase 76 U/L (0-41); Albumin Level 3.9 g/dL (3.5-5.2); Alkaline Phosphatase 85 U/L (40-130); Anion Gap 15.4 (5-19); Aspartate Amino Transferase 39 U/L (0-40); Blood Urea Nitrogen 14 mg/dL (6-20); Calcium 8.5 mg/dL (8.5-10.5); Carbon Dioxide 25 mmol/L (22-29); Chloride 104 mmol/L (98-107); Globulin 2.6 g/dL (1.3-4.6); Glomerular Filtration Rate 95.3 mL/min (90-130); Glucose 136 mg/dL (65-115); Osmolality Calculated 293 mOsm/kg (285-295); Potassium 4.4 mmol/L (3.5-5.1); Sodium 140 mmol/L (136-145); Total Bilirubin 0.4 mg/dL (0.15-1.2); Total Protein 6.5 g/dL (6.6-8.7)
[2024-02-03 15:29] LABS: Acetaminophen < 5.0 ug/mL (10-30); Alcohol Level < 10 mg/dL (0-10); Salicylate < 0.3 mg/dL (3-10)
[2024-02-03 17:21] VITALS: BP 150/71; PULSE 103; RESP 16; TEMP 36.7; O2SAT 97
--- NOTE | 2024-02-03 18:27 | PC.ADMIT ---
[facility] Admission Note: The patient,Akhil Barksdale,18 y/o, was given written information regarding hospital policies, unit procedures and contact persons. Patient's smoking status: . Vital Signs - 8 hr 02/03/24 14:22 02/03/24 17:21 02/03/24 18:06 Temperature 98.9 F 98.1 F Pulse Rate 102 H 103 H Respiratory Rate 20 H 16 Blood Pressure 148/91 150/71 Pulse Oximetry 98 97 Oxygen Delivery Method Room Air Room Air Room Air ADMITTED FROM ER AT 1736, TRANSPORTED BY WHEELCHAIR, ER STAFF AND SECURITY. PT STATES HE IS HERE DUE TO [employer] STAFF AGGRAVATING ME, MAKING ME SUICIDAL. THEY WON'T BUY ME THE FOOD I WANT AND I DON'T WANT TO GO BACK. IF MY GURADIAN DOESN'T LET ME I'M GOING TO GET IN [place] AND BEAT EVERYONE'S ASSES UNTIL I GET TO GO SOMEWHERE ELSE. PT ENDORESE SUICIDAL THOUGHTS WITH NO PLAN BUT STATES I WILL CUT MYSELF, PT ALSO ENDORSES HOMICIDAL THOUGHTS AGAINST [employer] HIGH UPS AND I KNOW HOW I WILL DO IT. I WILL GO MAK AND CHASTITY ON THEM, TAKE MY TEETH AND RIP OUT THEIR THROATS. PT DOES HAVE A GUARDIAN NARCISA BOYKIN AT [phone] FROM [facility]. PT STATES HE ALWAYS HEARS AND SEES THINGS MAINLY PEOPLE, I KNOW EXACTLY WHERE THEY CAUSE I SEE IT. ER STAFF REPORT NURSE HAD TO ASK [employer] STAFF THAT WAS WITH PT TO GO AND SIT IN THE ER WAITING ROOM DUE TO AGGRAVATING PT. PT STATES HE ALWAYS HAS VIOLENT BEHVIORS AND I DON'T GET ALONG WITH MEN. PT WAS DRESSED OUT AND SKIN ASSESSMENT COMPLETED WITH SMALL RED BUMPS NOTED TO BILATERAL LEGS PT STATES THEY ARE BITES. PT WAS POSITIVE FOR BENZODIAZAPINES BUT TAKES ON ROUTINE BASIS. PT WAS ORIENTATED TO UNIT, PT WAS GIVEN A DINNER TRAY, SNACK AND DRINK, ALL QUESTIONS ANSWERED AND SUPPORT VOICED.
[2024-02-03] MEDS: diazePAM 5 mg Tablet PO (20:44)
[2024-02-03] MEDS: trazodone 50 mg Tablet PO (20:44)
[2024-02-03] MEDS: divalproex DR 500 mg Tablet 1000 MG PO (20:44)
[2024-02-03] MEDS: nicotine 4 mg lozenge MUCOUS MEM (20:44)
[2024-02-03] MEDS: divalproex DR 250 mg Tablet PO (20:44)
[2024-02-03] MEDS: quetiapine 100 mg Tablet 400 MG PO (20:44)
[2024-02-03 21:38] VITALS: BP 146/73; PULSE 136; RESP 20; TEMP 36.6; O2SAT 93
[2024-02-04 06:00] VITALS: BP 136/70; PULSE 87; RESP 17; TEMP 36.3; O2SAT 94
[2024-02-04] MEDS: tamsulosin 0.4 mg Capsule PO (08:37)
[2024-02-04] MEDS: diazePAM 5 mg Tablet PO ×3 (08:37→20:32)
[2024-02-04] MEDS: magnesium oxide 400 mg tablet PO (08:37)
[2024-02-04] MEDS: docusate sodium 100 mg Capsule PO (08:37)
[2024-02-04] MEDS: nicotine 4 mg lozenge MUCOUS MEM ×4 (08:38→20:32)
[2024-02-04] MEDS: famotidine 20 mg Tablet 40 MG PO ×2 (08:38→17:45)
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
[2024-02-04 14:00] VITALS: BP 118/76; PULSE 90; RESP 16; TEMP 36.6; O2SAT 98
[2024-02-04] MEDS: quetiapine 300 mg Tablet PO (20:32)
[2024-02-04] MEDS: haloperidol 5 mg Tablet PO (20:33)
[2024-02-04] MEDS: paliperidone ER 3 mg Tablet PO (20:33)
[2024-02-04 21:29] VITALS: BP 121/61; PULSE 97; RESP 17; TEMP 36.4; O2SAT 96
[2024-02-05 06:00] VITALS: BP 127/76; PULSE 84; RESP 17; TEMP 36.5; O2SAT 97
[2024-02-05] MEDS: tamsulosin 0.4 mg Capsule PO (08:29)
[2024-02-05] MEDS: divalproex ER 250 mg Tablet (24H) PO (08:29)
[2024-02-05] MEDS: magnesium oxide 400 mg tablet PO (08:29)
[2024-02-05] MEDS: divalproex ER 500 mg Tablet (24H) 1000 MG PO (08:29)
[2024-02-05] MEDS: docusate sodium 100 mg Capsule PO (08:29)
[2024-02-05] MEDS: famotidine 20 mg Tablet 40 MG PO ×2 (08:30→17:04)
[2024-02-05] MEDS: diazePAM 5 mg Tablet PO ×3 (08:30→20:14)
[2024-02-05] MEDS: nicotine 4 mg lozenge MUCOUS MEM ×4 (08:33→20:16)
--- NOTE | 2024-02-05 10:12 | PC.NURSE ---
Morning assessment Patient said that he is ready to go home. Patient says that he hears voices all of the time but that he mostly ignores them. Patient denies SI, HI, anxiety, and depression.
[2024-02-05 14:00] VITALS: BP 139/82; PULSE 110; RESP 17; TEMP 36.7; O2SAT 97
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
[2024-02-05] MEDS: paliperidone ER 6 mg Tablet PO (20:14)
[2024-02-05] MEDS: doxepin 10 mg Capsule PO (20:14)
[2024-02-05 21:11] VITALS: BP 145/82; PULSE 111; RESP 17; TEMP 36.6; O2SAT 95
[2024-02-05] MEDS: OLANZapine 5 mg ODT PO (22:59)
[2024-02-06 06:00] VITALS: BP 129/69; PULSE 88; RESP 18; O2SAT 97
[2024-02-06] MEDS: famotidine 20 mg Tablet 40 MG PO ×2 (08:07→17:27)
[2024-02-06] MEDS: docusate sodium 100 mg Capsule PO (08:08)
[2024-02-06] MEDS: divalproex ER 500 mg Tablet (24H) 1000 MG PO (08:08)
[2024-02-06] MEDS: diazePAM 5 mg Tablet PO ×3 (08:08→20:10)
[2024-02-06] MEDS: magnesium oxide 400 mg tablet PO (08:08)
[2024-02-06] MEDS: tamsulosin 0.4 mg Capsule PO (08:08)
[2024-02-06] MEDS: divalproex ER 250 mg Tablet (24H) PO (08:08)
[2024-02-06] MEDS: nicotine 4 mg lozenge MUCOUS MEM ×5 (09:11→20:12)
[2024-02-06 10:14] VITALS: BP 129/69; PULSE 88; RESP 18; TEMP 36.6; O2SAT 97
[2024-02-06 14:00] VITALS: BP 130/86; PULSE 125; RESP 18; TEMP 36.8; O2SAT 95
--- NOTE | 2024-02-06 16:04 | P.NPUPN_ITS ---
Subjective NPU 2 Subjective: 18-year-old male with a history of inter mittent explosive disorder and history of aggression admitted from an [facility] with suicidal ideation. Patient had reported no side effects from the Invega. He had again indicated the lack of effectiveness of Seroquel to help with managing his moods. He reported some difficulties with falling asleep with the discontinuation of Seroquel. The patient reported that his problems with anger were better and he stated that he had a desire to return back to his current [facility]. He had no acts of aggression noted here. He was compliant although he was somewhat isolative on the milieu. There was no evidence of any threatening behavior. He did not endorse feeling depressed currently although he reported having frequent bouts of depression while staying at the [facility]. Mental Status Exam 2 MSE Comments: This is an obese versus morbidly obese white male in hospital scrubs with adequate grooming and fleeting eye contact. No abnormal involuntary motor movements except for mild psychomotor retardation. He was cooperative with exam in mild distress. Speech was normal in rate and volume. Mood described as allright. Affect: slightly restricted today. Thought process was linear and organized. Thought content: Patient endorsed no suicidal ideation with no active plan. He minimized any homicidal ideation. There were no delusions reported or noted. He denied any auditory or visual hallucinations and did not appear to be responding to internal stimuli. Attention and concentration were intact and memory appeared reliable to some degree but questionable at others, but none were formally tested. He is alert and oriented x3. Insight appears limited. Judgment appears limited. Impulse control appeared better. Intellectual ability is commensurate to mild cognitive impairment. Vitals/I&O/Wt Last Vital Signs Temp 98.2 F 02/06/24 14:00 Pulse 125 H 02/06/24 14:00 Resp 18 02/06/24 14:00 BP 130/86 02/06/24 14:00 Pulse Ox 95 02/06/24 14:00 O2 Del Method Room Air 02/06/24 14:00 Data NPU 02/03/24 15:01 02/03/24 15:01 A&P Assessment and plan (1) Intermittent explosive disorder in adult: (2) Suicidal ideation: (3) ADHD: (4) PTSD (post-traumatic stress disorder): (5) Intellectual disability: Plan This is a 18-year-old white male with a long history of trauma and mental health issues with hx of ADHD, PTSD, Intermittent Explosive disorder currently reporting suicidal ideation and increased anger toward peers while residing in [facility]. Patient amenable to change in medications to help with targeting explosive outbursts. 1. Restart outpatient medications. Continue invega to 6mg at night. Trial of doxepin for insomnia in place of trazodone. 2. Continue every 15 minute checks for safety. 3. Encourage individual, group and milieu therapies. 4. Encourage sober living treatment after discharge at the highest level of care to which he is willing to commit. 5. Patient continues to show improvement on Invega whose parent drugs have shown evidence of being successful at treatment of IED (Seroquel HAS NOT shown any evidence to help with aggression or irritability in this population of patients) Involuntary Hold Information 2 96 Hour Hold: 96 Hour Involuntary Admission: No Attestations NPU 2 Medical Necessity Statement*: Inpatient hospitalization is medically necessary and the clinically appropriate intervention at this time. We will monitor medications and make changes as indicated. The patient's likely length of stay is 1-2 days. Coding Level of Care Code Acute Code for [facility] Fwd Diagnoses Intermittent explosive disorder in adult F63.81 Suicidal ideation R45.851 ADHD F90.9 PTSD (post-traumatic stress disorder) F43.10 Intellectual disability F79
--- NOTE | 2024-02-06 16:29 | P.NPUPN_ITS ---
Subjective NPU 2 Subjective: 18-year-old male with a history of inter mittent explosive disorder and history of aggression admitted from an [facility] with suicidal ideation. Patient had reported no side effects from the Invega. He had again indicated the lack of effectiveness of Seroquel to help with managing his moods. He reported some difficulties with falling asleep with the discontinuation of Seroquel. The patient reported that his problems with anger were better and he stated that he had a desire to return back to his current [facility]. He had no acts of aggression noted here. He was compliant although he was somewhat isolative on the milieu. There was no evidence of any threatening behavior. He did not endorse feeling depressed currently although he reported having frequent bouts of depression while staying at the [facility]. Vitals/I&O/Wt Last Vital Signs Temp 98.2 F 02/06/24 14:00 Pulse 125 H 02/06/24 14:00 Resp 18 02/06/24 14:00 BP 130/86 02/06/24 14:00 Pulse Ox 95 02/06/24 14:00 O2 Del Method Room Air 02/06/24 14:00 Data NPU 02/03/24 15:01 02/03/24 15:01 Involuntary Hold Information 2 96 Hour Hold: 96 Hour Involuntary Admission: No Coding Level of Care Code Acute Code for Edi Mcgill
[2024-02-06] MEDS: paliperidone ER 6 mg Tablet PO (20:10)
[2024-02-06] MEDS: acetaminophen 325 mg Tablet 650 MG PO (21:04)
[2024-02-06] MEDS: trazodone 50 mg Tablet PO (21:48)
[2024-02-06 22:00] VITALS: BP 139/81; PULSE 116; RESP 18; TEMP 36.4; O2SAT 94
[2024-02-06] MEDS: OLANZapine 5 mg ODT PO (23:25)
[2024-02-07 06:00] VITALS: BP 132/74; PULSE 81; RESP 17; TEMP 36.6; O2SAT 97
[2024-02-07] MEDS: tamsulosin 0.4 mg Capsule PO (08:12)
[2024-02-07] MEDS: famotidine 20 mg Tablet 40 MG PO (08:13)
[2024-02-07] MEDS: diazePAM 5 mg Tablet PO (08:13)
[2024-02-07] MEDS: divalproex ER 250 mg Tablet (24H) PO (08:13)
[2024-02-07] MEDS: magnesium oxide 400 mg tablet PO (08:13)
[2024-02-07] MEDS: divalproex ER 500 mg Tablet (24H) 1000 MG PO (08:13)
[2024-02-07] MEDS: docusate sodium 100 mg Capsule PO (08:13)
[2024-02-07] MEDS: nicotine 4 mg lozenge MUCOUS MEM ×2 (08:15→12:03)
[2024-02-07] MEDS: ergocalciferol (vitamin D2) 50,000 Unit Capsule 50000 UNIT PO (10:50)
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
== END 2024-02-07 13:11 | disposition home or self-care (01) | DRG 883 ==
LOC: ER 16:19 → NP 16:35
PROVIDERS: Admitting Provider Psychiatry & Neurology Psychiatry; Emergency Provider Emergency Medicine; PCP Nurse Practitioner Family; Visit Provider Psychiatry & Neurology Psychiatry
DX: F63.81 Intermittent explosive disorder (principal); R45.851 Suicidal ideations; F90.9 Attention-deficit hyperactivity disorder, unspecified type; F43.12 Post-traumatic stress disorder, chronic; F71 Moderate intellectual disabilities; G47.00 Insomnia, unspecified; F17.210 Nicotine dependence, cigarettes, uncomplicated
CPT/HCPCS: 80053; 80306; 80307; 85025; 97150; 97165; 99285

== ENCOUNTER 2024-02-27 21:21 | Emergency (ER) | payer MEDICAID, SELFPAY ==
[2024-02-27 21:45] VITALS: BP 168/105; PULSE 95; RESP 20; TEMP 37.2; O2SAT 98; BMI 56.0
--- NOTE | 2024-02-27 22:06 | ECG_ITS ---
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 Measurements Intervals [place] Rate: 94 P: 49 [place]: 128 QRS: 5 QRSD: 86 T: 40 QT: 340 QTc: 427 Interpretive Statements SINUS RHYTHM Compared to ECG 07/02/2021 20:41:12 No significant changes Electronically Signed On 02-27-2024 23:23:42 CDT by Sanket Clemons M.D. [email or web address]
--- NOTE | 2024-02-27 22:06 | CTR_ITS ---
PROCEDURE INFORMATION: Exam: CT Head Without Contrast Exam date and time: 02/27/2024 10:16 PM Age: 18 years old Clinical indication: Dizziness; Additional info: Numbness, dizziness TECHNIQUE: Imaging protocol: Computed tomography of the head without contrast. Radiation optimization: All CT scans at this facility use at least one of these dose optimization techniques: automated exposure control; mA and/or kV adjustment per patient size (includes targeted exams where dose is matched to clinical indication); or iterative reconstruction. COMPARISON: CT temporal bone wo con* [id number] 06/19/2023 1:46 PM RADIATION DOSE METRICS: Total DLP (mGy-cm): 1276.88 FINDINGS: Brain: Normal. No hemorrhage. Unremarkable white matter. No mass effect. Cerebral ventricles: No ventriculomegaly. Paranasal sinuses: Visualized sinuses are unremarkable. No fluid levels. Mastoid air cells: Visualized mastoid air cells are well aerated. Bones: Unremarkable. No acute fracture. Soft tissues: Unremarkable. CT/CT head wo con* [id number] IMPRESSION: No acute intracranial abnormality.
--- NOTE | 2024-02-27 22:28 | ED_ITS ---
HPI - General Adult 2 General: Chief complaint: General Medical Stated complaint: cp numb legs Time Seen by Provider: 02/27/24 22:05 History of Present Illness: 18-year-old male patient comes in today with complaints of his legs feeling numb like they were asleep. Then patient started having some chest discomfort and some hand pain. Patient reports most symptoms have resolved except for some discomfort in his right hand. Patient appears nontoxic. Patient appears in no pain. Related Data Home Medications Medication Instructions Recorded Confirmed cholecalciferol (vitamin D3) 1,250 1,250 mcg PO Q7D 08/07/23 02/03/24 mcg (50,000 unit) capsule docusate sodium 100 mg capsule 100 mg PO DAILY 08/07/23 02/03/24 magnesium oxide 400 mg PO DAILY 08/07/23 02/03/24 cetirizine 10 mg capsule (All Day 10 mg PO DAILY PRN Allergy Symptoms 09/04/23 02/03/24 Allergy (cetirizine)) famotidine 20 mg tablet 40 mg PO BID 12/11/23 02/03/24 Previous Rx's Medication Instructions Recorded tamsulosin 0.4 mg capsule 0.4 mg PO DAILY 30 days #30 caps 01/18/23 divalproex 250 mg tablet,delayed 250 mg PO .8 pm #30 tabs 12/11/23 release (Depakote) divalproex 500 mg tablet,delayed 1,000 mg (2 x 500 mg) PO .8 pm #60 12/11/23 release (Depakote) tabs paliperidone 6 mg tablet,extended 6 mg PO BEDTIME 30 days #30 tabs 02/07/24 release 24 hr diazepam 5 mg tablet (Valium) 5 mg PO TID anxiety/agitation #21 02/13/24 tabs Allergies Allergy/AdvReac Type Severity Reaction Status Date / Time oyster extract Allergy Unknown Verified 02/03/24 14:36 Review of Systems 2 General: Reports: 10 or more systems reviewed and unremarkable except in HPI and below PFSH ED 2 PFSH: Medical History Panic disorder Nicotine dependence, cigarettes, uncomplicated Nicotine dependence, chewing tobacco, uncomplicated Nicotine dependence due to vaping tobacco product Chronic post-traumatic stress disorder Moderate intellectual disabilities Intermittent explosive disorder in adult severe Psychiatric care Dysuria Physical Exam 2 Const: COMMON NORMALS: alert HENMT: COMMON NORMALS: normocephalic HEAD & SCALP: normocephalic Neck/C-Spine: COMMON NORMALS: full ROM Resp: COMMON NORMALS: normal respiratory effort and clear to auscultation bilaterally AUSCULTATION: clear to auscultation bilaterally Cardio: COMMON NORMALS: regular rate RATE: regular rate GI: COMMON NORMALS: non-tender Back/Pelvis: COMMON NORMALS: thoracic and lumbar spine normal to inspection Extremity: COMMON NORMALS: normal to inspection and full ROM Neuro: SENSORIUM/ORIENTATION: Yes alert Skin: COMMON NORMALS: turgor normal GENERAL SKIN EXAM: turgor normal Course 2 Vital Signs: Vital signs: Vital Signs Temperature 99.0 F 02/27/24 21:45 Pulse Rate 87 02/27/24 23:00 Respiratory Rate 14 02/27/24 23:00 Blood Pressure 147/93 02/27/24 23:00 Pulse Oximetry 96 02/27/24 23:00 Oxygen Delivery Me thod Room Air 02/27/24 23:00 MDM - General Adult Medical Decision Making 18-year-old male patient comes in today for complaints of numbness in both lower extremities and pain to both hands with numbness. Patient also reports some chest discomfort. Patient reports most of symptoms have resolved since coming to the ER. Patient appears nontoxic. Patient was altered with his well. Respirations are even lungs are clear to auscultation. Differential diagnosis includes not limited to panic disorder, anxiety attack, neuropathy, TIA, stroke syndrome, ACS. CBC CMP was unremarkable. Troponin was unremarkable. CT of the head was normal. EKG was normal. Reviewed exam with patient recommendation for treatment follow-up. Patient believes that this is due to his anxiety and feels that he needs counseling. I recommended patient have counseling services with therapy. Patient and caregiver were both informed. Lab Data 02/27/24 22:30 02/27/24 22:[address] 02/27/24 22:06 IMPRESSION: No acute intracranial abnormality. Laboratory Results WBC 8.80 10^3/uL (4.5-13.0) 02/27/24 22:30 RBC 5.10 10^6/uL (3.85-5.65) 02/27/24 22:30 Hgb 14.70 g/dL (13.2-15.6) 02/27/24: Hct 44.3 % (37-53) 02/27/24: MCV 86.9 fl (82-101) 02/27/24: MCH 28.8 pg (27-33) 02/27/24: MCHC 33.2 g/dL (30-55) 02/27/24: RDW 12.7 % (12.1-15.1) 02/27/24: Plt Count 235 10^3/cmm (157-399) 02/27/24: MPV 9.8 fL (7.4-10.4) 02/27/24: Neut % (Auto) 64.0 % 02/27/24: Lymph % (Auto) 24.8 % 02/27/24: [place] % (Auto) 8.8 % 02/27/24: Eos % (Auto) 0.8 % 02/27/24: Baso % (Auto) 0.7 % 02/27/24: Neut # (Auto) 5.64 10^3/uL (1.8-8.0) 02/27/24: Lymph # (Auto) 2.2 10^3/uL (1.5-6.5) 02/27/24: [place] # (Auto) 0.8 10^3/uL (0.2-0.9) 02/27/24: Eos # (Auto) 0.1 10^3/uL (0.0-0.8) 02/27/24: Baso # (Auto) 0.1 10^3/uL (0.0-0.1) 02/27/24: Nucleated RBC % (auto) 0 % 02/27/24: Nucleated RBCs # 0.0 /100WBC 02/27/24: Sodium 138 mmol/L (136-145) 02/27/24: Potassium 4.8 mmol/L (3.5-5.1) 02/27/24: Chloride 100 mmol/L (98-107) 02/27/24: Carbon Dioxide 24 mmol/L (22-29) 02/27/24 22:30 Anion Gap 18.8 (5-19) 02/27/24 22:30 BUN 14 mg/dL (6-20) 02/27/24 22:30 Creatinine 0.9 mg/dL (0.7-1.2) 02/27/24 22:30 GFR Calculation 107.6 mL/min (90-130) 02/27/24 22:30 Glucose 119 mg/dL (65-115) H 02/27/24 22:30 Calculated Osmolality 288 mOsm/kg (285-295) 02/27/24 22:30 Calcium 9.3 mg/dL (8.5-10.5) 02/27/24 22:30 Total Bilirubin 0.3 mg/dL (0.15-1.2) 02/27/24:30 AST 40 U/L (0-40) 02/27/24:30 ALT 79 U/L (0-41) H 02/27/24 22:30 Alkaline Phosphatase 92 U/L (40-130) 02/27/24:30 Troponin T Baseline < 6 ng/L (0-15) 02/27/24 22:30 Total Protein 7.0 g/dL (6.6-8.7) 02/27/24: Albumin 4.5 g/dL (3.5-5.2) 02/27/24 22: Globulin 2.5 g/dL (1.3-4.6) 02/27/24 22:30 All radiology interpretation(s) finalized by discharge EKG Data EKG 1: I personally reviewed and interpreted this EKG as follows: EKG interpretation date: 02/27/24 EKG interpretation time: 22:53 Interpretation: EKG shows a sinus rhythm with a regular rate at [address] elevation or ectopy is noted. Artifact is present on EKG. No prior exam was available for comparison. Computer generated interpretation: Head CT 02/27/24 22:06 IMPRESSION: No acute intracranial abnormality. Sinus rhythm. Compared to ED CT 07/02/2021 no significant changes. Discharge Plan Discharge Patient Disposition: Home Clinical Impression: Panic disorder Condition: Stable Prescriptions: No Action famotidine 20 mg tablet 40 mg PO BID docusate sodium 100 mg capsule 100 mg PO DAILY cholecalciferol (vitamin D3) 1,250 mcg (50,000 unit) capsule 1,250 mcg PO Q7D Rx Instructions: GIVEN EVERY GI magnesium oxide 400 mg magnesium tablet 400 mg PO DAILY All Day Allergy (cetirizine) 10 mg capsule 10 mg PO DAILY PRN (Reason: Allergy Symptoms) Depakote 250 mg tablet,delayed release (DR/EC) 250 mg PO .8 pm Qty: 30 4RF Rx Instructions: Take one tablet at 8 pm with 1000 mg, total dose 1250 mg divalproex [Depakote] 500 mg tablet,delayed release (DR/EC) 1,000 mg PO .8 pm Qty: 60 4RF Rx Instructions: Take two tablets with 250 mg tab at 8pm, total dose 1250 mg diazepam [Valium] 5 mg tablet 5 mg PO TID Qty: 21 4RF Rx Instructions: Take one tablet at 10 am, 4 pm and 10 pm tamsulosin 0.4 mg capsule 0.4 mg PO DAILY 30 Days Qty: 30 1RF paliperidone 6 mg Tablet Extended Release 24 Hr 6 mg PO BEDTIME 30 Days Qty: 30 1RF Discharge Orders: Discharge ED (Routine); Ordered 02/27/24 Ordered By: Angel Coley Referrals: Ella Flor FNP [Primary Care Provider] - Discharge Diet: Usual diet Discharge Activity: Increase activity as tolerated Patient Instructions: Panic Disorder (ED) Activity Restrictions/Additional Instructions: Home and rest. Drink plenty water and fluids. Follow-up with primary care. Thank you for choosing [facility] for your healthcare needs today. Please realize this is an emergency room and that we are providing you with a medical screening exam and this may not be complete and all inclusive of all the testing and or work up that you may need to determine your ailment or severity of your illness. You have been screened and evaluated and felt safe for discharge. Health conditions do change or evolve sometimes and as such it is important that you follow up with your Primary Doctor to be re checked, 3-5 days is a general good time frame for follow up. You are always welcome to return to the ED for re assessment if your symptoms are worsening or you have new concerns Coding Level of Care Code ED Shrub Planter for Edi Mcgill
[2024-02-27 22:33] VITALS: BP 161/96; PULSE 99; RESP 18; O2SAT 97
[2024-02-27 22:45] LABS: Basophils # 0.1 10^3/uL (0.0-0.1); Basophils % 0.7 %; Eosinophils # 0.1 10^3/uL (0.0-0.8); Eosinophils % 0.8 %; Hematocrit 44.3 % (37-53); Lymphocytes # 2.2 10^3/uL (1.5-6.5); Lymphocytes % 24.8 %; Mean Corpuscular HGB Conc 33.2 g/dL (30-55); Mean Corpuscular Hemoglobin 28.8 pg (27-33); Mean Corpuscular Volume 86.9 fl (82-101); Mean Platelet Volume 9.8 fL (7.4-10.4); Monocytes # 0.8 10^3/uL (0.2-0.9); Monocytes % 8.8 %; Neutrophils # 5.64 10^3/uL (1.8-8.0); Nucleated Red Blood Cells % 0 %; Platelet Count 235 10^3/cmm (157-399); Red Cell Distribution Width 12.7 % (12.1-15.1)
[2024-02-27 23:00] VITALS: BP 147/93; PULSE 87; RESP 14; O2SAT 96
[2024-02-27 23:03] LABS: Alanine Aminotransferase 79 U/L (0-41); Albumin Level 4.5 g/dL (3.5-5.2); Alkaline Phosphatase 92 U/L (40-130); Blood Urea Nitrogen 14 mg/dL (6-20); Calcium 9.3 mg/dL (8.5-10.5); Carbon Dioxide 24 mmol/L (22-29); Chloride 100 mmol/L (98-107); Creatinine Clr Calc Pharmacy 224.9881; Globulin 2.5 g/dL (1.3-4.6); Glomerular Filtration Rate 107.6 mL/min (90-130); Glucose 119 mg/dL (65-115); Osmolality Calculated 288 mOsm/kg (285-295); Sodium 138 mmol/L (136-145); Total Bilirubin 0.3 mg/dL (0.15-1.2)
[2024-02-27 23:04] LABS: Anion Gap 18.8 (5-19); Aspartate Amino Transferase 40 U/L (0-40); Potassium 4.8 mmol/L (3.5-5.1); Troponin(5th) Baseline < 6 ng/L (0-15)
[2024-02-28 00:02] VITALS: BP 127/93; O2SAT 98
== END 2024-02-28 00:04 | disposition home or self-care (01) ==
PROVIDERS: Emergency Provider Nurse Practitioner Family; PCP Nurse Practitioner Family
DX: F41.0 Panic disorder [episodic paroxysmal anxiety] (principal)
CPT/HCPCS: 36415; 70450; 80053; 84484; 85025; 93005; 99284

== ENCOUNTER 2024-03-22 16:13 | Emergency (ER) | payer MEDICAID, SELFPAY ==
[2024-03-22 16:16] VITALS: BP 160/82; PULSE 110; TEMP 37.3; O2SAT 97; BMI 54.2
--- NOTE | 2024-03-22 17:05 | ED.C_ITS ---
HPI - Psych General: Chief Complaint: Psychiatric Symptoms Stated Complaint: MHE Time Seen by Provider: 03/22/24 16:30 History of Present Illness: Patient presents to the ER from [facility] ambulance. With complaints of self-harm. Patient says hit he is irritated by staff in the facility and he wants out of there. Patient does report breaking his CD in half and using it to scratch his left inner forearm. Patient has multiple superficial cuts to the left forearm, bleeding is controlled. Patient is alert and oriented and coherent and adequately denies suicidal homicidal ideation. He blatantly states he just did this for attention and to get out of the facility he is at now because he wants out. His guardian was called and said he has done this multiple times and just hates the facility there but he is going to have to stay there until he turns 19 to the put him in an adult facility. Related Data Home Medications Medication Instructions Recorded Confirmed cholecalciferol (vitamin D3) 1,250 1,250 mcg PO Q7D 08/07/23 03/13/24 mcg (50,000 unit) capsule docusate sodium 100 mg capsule 100 mg PO DAILY 08/07/23 03/13/24 magnesium oxide 400 mg PO DAILY 08/07/23 03/13/24 famotidine 20 mg tablet 40 mg PO BID 12/11/23 03/13/24 acetaminophen 325 mg tablet 325 mg PO QID PRN 03/13/24 03/13/24 (Tylenol) albuterol sulfate 90 mcg/actuation 2 puff inhalation Q6H PRN 03/13/24 03/13/24 aerosol inhaler (Ventolin HFA) amitriptyline 25 mg tablet 25 mg PO BEDTIME 03/13/24 03/13/24 benzocaine 20 %-menthol 0.26 ea mucous membrane 03/13/24 03/13/24 %-zinc chloride 0.15 % mucosal gel (Orajel 3X Toothache-Gum) carboxymethylcellulose sodium 1 % 1 drp ophthalmic (eye) QID PRN 03/13/24 03/13/24 eye liquid gel drops (Refresh Liquigel) cetirizine 10 mg capsule (All Day 10 mg PO DAILY Allergy Symptoms 03/13/24 03/13/24 Allergy (cetirizine)) fluticasone propionate 50 2 spray intranasal DAILY PRN 03/13/24 03/13/24 mcg/actuation nasal spray,suspension guaifenesin 600 mg tablet, 600 mg PO DAILY PRN 03/13/24 03/13/24 extended release 12 hr (Mucinex) hydrocortisone 1 %-pramoxine 1 % 1 applic IN QID PRN 03/13/24 03/13/24 rectal foam (Proctofoam HC) ibuprofen 800 mg tablet 800 mg PO Q8H PRN 03/13/24 03/13/24 lactase 3,000 unit chewable tablet 3,000 unit PO QID PRN 03/13/24 03/13/24 (Dairy Aid) menthol 3.2 mg lozenges ([place] 3.2 mg mucous membrane Q4H PRN 03/13/24 03/13/24 Cough Drops) nicotine (polacrilex) 4 mg buccal 4 mg buccal Q2H PRN 03/13/24 03/13/24 lozenge nystatin 100,000 unit/gram topical 1 applic topical TID PRN 03/13/24 03/13/24 ointment ondansetron 4 mg disintegrating 8 mg PO BID PRN 03/13/24 03/13/24 tablet pantoprazole 40 mg tablet,delayed 40 mg PO QAM 03/13/24 03/13/24 release promethazine-DM 6.25 mg-15 mg/5 mL 5 ml PO Q6H PRN 03/13/24 03/13/24 oral syrup rosuvastatin 10 mg tablet 10 mg PO DAILY 03/13/24 03/13/24 Previous Rx's Medication Instructions Recorded tamsulosin 0.4 mg capsule 0.4 mg PO DAILY 30 days #30 caps 01/18/23 diazepam 5 mg tablet (Valium) 5 mg PO TID anxiety/agitation #21 02/13/24 tabs divalproex 250 mg tablet,delayed 250 mg PO .8 pm #30 tabs 03/13/24 release (Depakote) divalproex 500 mg tablet,delayed 1,000 mg (2 x 500 mg) PO .8 pm #60 03/13/24 release (Depakote) tabs paliperidone 6 mg tablet,extended 6 mg PO QAM 30 days #30 tabs 03/13/24 release 24 hr Allergies Allergy/AdvReac Type Severity Reaction Status Date / Time oyster extract Allergy Unknown Verified 03/22/24 16:24 Review of Systems General: Reports: 10 or more systems reviewed and unremarkable except in HPI and below PFSH ED PFSH: Medical History Panic disorder Nicotine dependence, cigarettes, uncomplicated Nicotine dependence, chewing tobacco, uncomplicated Nicotine dependence due to vaping tobacco product Chronic post-traumatic stress disorder Moderate intellectual disabilities Intermittent explosive disorder in adult severe Psychiatric care Dysuria Physical Exam Const: COMMON NORMALS: no acute distress, average body habitus, patient oriented x3, no limitations, healthy appearing, alert and well nourished HENMT: COMMON NORMALS: normocephalic, atraumatic, hearing grossly normal bilaterally, external ears normal, Normal external nose present and moist oral mucous membranes HEAD & SCALP: normocephalic and atraumatic NOSE: Normal external nose present EXTERNAL EAR: Yes external ears normal Neck/C-Spine: COMMON NORMALS: no JVD Chest: COMMONS NORMALS: normal inspection of the chest and normal palpation of entire chest wall Resp: COMMON NORMALS: normal respiratory effort, No retractions, No use of accessory muscles and clear to auscultation bilaterally AUSCULTATION: clear to auscultation bilaterally Cardio: COMMON NORMALS: no JVD, regular rate, regular rhythm, S1 normal heart sound present, S2 normal heart sound present, No gallops present (Cardio), No clicks present (Cardio), No murmurs present (Cardio) and No rub (Cardio) RATE: regular rate RHYTHM: regular rhythm HEART SOUNDS: S1 normal heart sound present and S2 normal heart sound present GI: COMMON NORMALS: Normal to inspection, nondistended, normoactive bowel sounds present, Soft to palpation, non-tender, No hepatosplenomegaly present and no masses PALPATION: Yes Soft to palpation and Yes No hepatosplenomegaly present Extremity: NARRATIVE EXTREMITY EXAM: Multiple superficial cuts and abrasions on the left forearm. Neuro: COMMON NORMALS: patient oriented x3 SENSORIUM/ORIENTATION: Yes alert Course Vital Signs: Vital signs: Vital Signs Temperature 99.1 F 03/22/24 16:16 Pulse Rate 110 H 03/22/24 16:16 Blood Pressure 160/82 03/22/24 16:16 Pulse Oximetry 97 03/22/24 16:16 Oxygen Delivery Me thod Room Air 03/22/24 16:16 MDM - Psych Medical Decision Making Patient denies suicidal or homicidal ideation. Patient states he hates the facility he lives and he wants there. His guardian was notified and she said this is not new behavior for him. And he must stay there until he turns 19 and move him to adult facility. Patient be discharged back to the facility. Medical Records I reviewed the patient's medical records. Lab Data I reviewed the patient's lab results. No radiology studies performed this visit Discharge Plan Discharge Patient Disposition: Home Clinical Impression: Superficial laceration of forearm Condition: Stable Prescriptions: No Action famotidine 20 mg tablet 40 mg PO BID docusate sodium 100 mg capsule 100 mg PO DAILY cholecalciferol (vitamin D3) 1,250 mcg (50,000 unit) capsule 1,250 mcg PO Q7D Rx Instructions: GIVEN EVERY SATURDAY magnesium oxide 400 mg magnesium tablet 400 mg PO DAILY All Day Allergy (cetirizine) 10 mg capsule 10 mg PO DAILY amitriptyline 25 mg tablet 25 mg PO BEDTIME paliperidone 6 mg tablet extended release 24 hr 6 mg PO QAM 30 Days Qty: 30 3RF Rx Instructions: Take one tablet every morning divalproex [Depakote] 250 mg tablet,delayed release (DR/EC) 250 mg PO .8 pm Qty: 30 4RF Rx Instructions: Take one tablet at 8 pm with 1000 mg, total dose 1250 mg divalproex [Depakote] 500 mg tablet,delayed release (DR/EC) 1,000 mg PO .8 pm Qty: 60 4RF Rx Instructions: Take two tablets with 250 mg tab at 8pm, total dose 1250 mg rosuvastatin 10 mg tablet 10 mg PO DAILY Dairy Aid 3,000 unit tablet,chewable 3,000 unit PO QID PRN Rx Instructions: administer with meals and/or snacks fluticasone propionate 50 mcg/actuation spray,suspension 2 spray intranasal DAILY PRN Rx Instructions: administer into each nostril [place] Cough Drops 3.2 mg lozenge 3.2 mg mucous membrane Q4H PRN pantoprazole 40 mg tablet,delayed release (DR/EC) 40 mg PO QAM ibuprofen 800 mg tablet 800 mg PO Q8H PRN guaifenesin [Mucinex] 600 mg tablet extended release 12hr 600 mg PO DAILY PRN nicotine (polacrilex) 4 mg lozenge 4 mg buccal Q2H PRN nystatin 100,000 unit/gram ointment 1 applic topical TID PRN ondansetron 4 mg tablet,disintegrating 8 mg PO BID PRN Orajel 3X Toothache-Gum 20-0.26-0.15 % gel mucous membrane Proctofoam HC 1-1 % foam 1 applic IN QID PRN promethazine-DM 6.25-15 mg/5 mL syrup 5 ml PO Q6H PRN carboxymethylcellulose sodium [Refresh Liquigel] 1 % drops, liquid gel 1 drp ophthalmic (eye) QID PRN albuterol sulfate [Ventolin HFA] 90 mcg/actuation HFA aerosol inhaler 2 puff inhalation Q6H PRN acetaminophen [Tylenol] 325 mg tablet 325 mg PO QID PRN diazepam [Valium] 5 mg tablet 5 mg PO TID Qty: 21 4RF Rx Instructions: Take one tablet at 10 am, 4 pm and 10 pm tamsulosin 0.4 mg capsule 0.4 mg PO DAILY 30 Days Qty: 30 1RF Discharge Orders: Discharge ED (Routine); Ordered 03/22/24 Ordered By: Paxton Knapp Referrals: Ella Flor FNP [Primary Care Provider] - 1 week Patient Instructions: Laceration (DC) Activity Restrictions/Additional Instructions: Thank you for choosing [facility] for your healthcare needs today. Please realize that you were seen in the emergency department and that we are providing you with an emergency medical screening exam and this may not be a complete and all exclusive of all testing and/or medical workup we may need to determine your element or severity of your illness. It is very important that you follow-up as instructed with your primary care provider or specialist for the additional evaluation and to discuss your medical treatment plan. You may return to the emergency department should you have concerns or if your condition changes or worsens in any way. Coding Level of Care Code ED [employer] Cutting Machine Operator for Edi Mcgill
[2024-03-22 17:38] VITALS: BP 150/88; PULSE 100; O2SAT 94
--- NOTE | 2024-03-22 17:40 | PC.NURSE ---
called and spoke to pt guardian about pt situation. guardian stated that pt has been having multiple issues with the facility that he resides and and has moments of trying to get out of there. guardian stated that pt is good to be d/c back to [facility] facility if he is cleared. dr herrera notified.
== END 2024-03-22 17:40 | disposition home or self-care (01) ==
PROVIDERS: Emergency Provider Emergency Medicine; PCP Nurse Practitioner Family
DX: S51.812A Laceration without foreign body of left forearm, initial encounter (principal); X78.8XXA Intentional self-harm by other sharp object, initial encounter
CPT/HCPCS: 99283

== ENCOUNTER 2024-03-27 11:05 | Outpatient (CLI) | payer MEDICAID, SELFPAY ==
--- NOTE | 2024-03-27 11:09 | XR_ITS ---
WS: [id number] Left ankle, 3 views, 03/27/2024 Clinical Data: ankle injury Comparison: None. Findings: No fractures or dislocations are seen. The ankle mortise is normal. The talus and calcaneus are unrem arkable. There is soft tissue swelling over the medial and lateral malleolus.. XR/XR ankle LT min 3V* [id number] Impression: 1. No left ankle fracture. 2. Soft tissue swelling over medial and lateral malleolus.
== END 2024-03-27 11:06 | disposition home or self-care (01) ==
LOC: RAD 11:06
PROVIDERS: PCP Nurse Practitioner Family; Visit Provider Emergency Medicine
DX: S99.912A Unspecified injury of left ankle, initial encounter (principal); M70.871 Other soft tissue disorders related to use, overuse and pressure, right ankle and foot; X58.XXXA Exposure to other specified factors, initial encounter
CPT/HCPCS: 73610

== ENCOUNTER → 2024-06-12 13:49 | Outpatient (BNVA) | payer OTHER, SELFPAY | PROVIDERS: PCP Nurse Practitioner Family; Visit Provider Nurse Practitioner Psychiatric/Mental Health | DX: Z79.899 Other long term (current) drug therapy (principal) | CPT/HCPCS: 80053; 80061; 80164; 83036 ==

== ENCOUNTER 2024-07-16 13:21 | Outpatient (RCR) | payer MEDICARE, MEDICAID, SELFPAY | END 2024-08-07 23:59 | disposition home or self-care (01) | LOC: SPT 13:21 | PROVIDERS: Visit Provider Nurse Practitioner Family | DX: M54.50 Low back pain, unspecified (principal); G89.29 Other chronic pain | CPT/HCPCS: 97110; 97161 ==

== ENCOUNTER 2024-07-20 13:25 | Emergency (ER) | payer MEDICARE, MEDICAID, SELFPAY ==
[2024-07-20 13:31] VITALS: BP 151/74; PULSE 104; RESP 20; TEMP 36.4; O2SAT 99
--- NOTE | 2024-07-20 13:48 | W.ED.PSYCHS ---
HPI - Psych General: Chief Complaint: Psychiatric Symptoms Stated Complaint: MHE Time Seen by Provider: 07/20/24 13:27 Source: patient and EMS Mode of arrival: EMS Limitations: no limitations History of Present Illness: 19-year-old male has a history of intellectual disabilities lives at a [facility] he states that he does not like living there does not like [facility] wants to live somewhere else he does have some depression has been admitted here in the past for psychiatric issues he denies any suicidal or homicidal ideations they wanted to get a psych eval. Associated symptoms: Deny depression Related Data Home Medications Medication Instructions Recorded Confirmed cholecalciferol (vitamin D3) 1,250 1,250 mcg PO Q7D 08/07/23 06/12/24 mcg (50,000 unit) capsule docusate sodium 100 mg capsule 100 mg PO DAILY 08/07/23 06/12/24 magnesium oxide 400 mg PO DAILY 08/07/23 06/12/24 famotidine 20 mg tablet 40 mg PO BID 12/11/23 06/12/24 acetaminophen 325 mg tablet 325 mg PO QID PRN 03/13/24 06/12/24 (Tylenol) albuterol sulfate 90 mcg/actuation 2 puff inhalation Q6H PRN 03/13/24 06/12/24 aerosol inhaler (Ventolin HFA) amitriptyline 25 mg tablet 25 mg PO BEDTIME 03/13/24 06/12/24 benzocaine 20 %-menthol 0.26 ea mucous membrane 03/13/24 06/12/24 %-zinc chloride 0.15 % mucosal gel (Orajel 3X Toothache-Gum) carboxymethylcellulose sodium 1 % 1 drp ophthalmic (eye) QID PRN 03/13/24 06/12/24 eye liquid gel drops (Refresh Liquigel) cetirizine 10 mg capsule (All Day 10 mg PO DAILY Allergy Symptoms 03/13/24 06/12/24 Allergy (cetirizine)) fluticasone propionate 50 2 spray intranasal DAILY PRN 03/13/24 06/12/24 mcg/actuation nasal spray,suspension guaifenesin 600 mg tablet, 600 mg PO DAILY PRN 03/13/24 06/12/24 extended release 12 hr (Mucinex) hydrocortisone 1 %-pramoxine 1 % 1 applic UT QID PRN 03/13/24 06/12/24 rectal foam (Proctofoam HC) ibuprofen 800 mg tablet 800 mg PO Q8H PRN 03/13/24 06/12/24 lactase 3,000 unit chewable tablet 3,000 unit PO QID PRN 03/13/24 06/12/24 (Dairy Aid) menthol 3.2 mg lozenges ([place] 3.2 mg mucous membrane Q4H PRN 03/13/24 06/12/24 Cough Drops) nicotine (polacrilex) 4 mg buccal 4 mg buccal Q2H PRN 03/13/24 06/12/24 lozenge nystatin 100,000 unit/gram topical 1 applic topical TID PRN 03/13/24 06/12/24 ointment ondansetron 4 mg disintegrating 8 mg PO BID PRN 03/13/24 06/12/24 tablet pantoprazole 40 mg tablet,delayed 40 mg PO QAM 03/13/24 06/12/24 release promethazine-DM 6.25 mg-15 mg/5 mL 5 ml PO Q6H PRN 03/13/24 06/12/24 oral syrup rosuvastatin 10 mg tablet 10 mg PO DAILY 03/13/24 06/12/24 Previous Rx's Medication Instructions Recorded tamsulosin 0.4 mg capsule 0.4 mg PO DAILY 30 days #30 caps 01/18/23 divalproex 500 mg tablet,delayed 1,500 mg (3 x 500 mg) PO .8 pm #90 06/12/24 release (Depakote) tabs paliperidone 6 mg tablet,extended 6 mg PO QAM 30 days #30 tabs 06/12/24 release 24 hr diazepam 5 mg tablet (Valium) 5 mg PO TID anxiety/agitation #21 06/22/24 tabs Allergies Allergy/AdvReac Type Severity Reaction Status Date / Time oyster extract Allergy Unknown Verified 06/12/24 12:52 Review of Systems Const: Denies: fever(s), chills, body aches or change in appetite Eyes: Denies: blurry vision or eye discomfort ENMT: Denies: throat pain or dental pain Card: Denies: chest pain Resp: Denies: dyspnea GI: Denies: abdominal pain, nausea, vomiting or diarrhea : Denies: dysuria Musc: Denies: neck pain or back pain Skin/Breast: Denies: rash Neuro: Denies: headache(s) Psych: Denies: depression Finn/Lymph: Denies: easy bruising All/Imm: Denies: urticaria PFSH ED PFSH: Medical History Panic disorder Nicotine dependence, cigarettes, uncomplicated Nicotine dependence, chewing tobacco, uncomplicated Nicotine dependence due to vaping tobacco product Chronic post-traumatic stress disorder Moderate intellectual disabilities Intermittent explosive disorder in adult severe Psychiatric care Dysuria Social History Smoking and tobacco/nicotine status: unknown if used tobacco/nicotine Physical Exam Const: COMMON NORMALS: no acute distress, patient oriented x3 and healthy appearing HENMT: COMMON NORMALS: normocephalic and atraumatic HEAD & SCALP: normocephalic and atraumatic Neck/C-Spine: COMMON NORMALS: full ROM and supple Chest: COMMONS NORMALS: normal inspection of the chest Resp: COMMON NORMALS: normal respiratory effort Cardio: COMMON NORMALS: regular rate, regular rhythm and No murmurs present (Cardio) RATE: regular rate RHYTHM: regular rhythm Extremity: COMMON NORMALS: normal to inspection and full ROM Neuro: COMMON NORMALS: patient oriented x3, moves all extremities and no focal motor deficits Psych: COMMON NORMALS: mental status grossly normal, Normal thought process present and cooperative THOUGHT PROCESS: Normal thought process present Skin: COMMON NORMALS: no rashes or lesions noted and no wounds GENERAL SKIN EXAM: no rashes or lesions noted Course Vital Signs: Vital signs: Vital Signs Temperature 97.6 F 07/20/24 13:31 Pulse Rate 104 H 07/20/24 13:31 Respiratory Rate 20 H 07/20/24 13:31 Blood Pressure 151/74 07/20/24 13:31 Pulse Oximetry 99 07/20/24 13:31 Oxygen Delivery Me thod Room Air 07/20/24 13:31 MDM - Psych Medical Decision Making Patient presents here with depression he has no SI or HI he is just upset that his living conditions I did speak to psychiatrist Dr. Alvarado who knows patient well he does not meet inpatient criteria will discharge back to [facility] No radiology studies performed this visit Discharge Plan Discharge Patient Disposition: Home Clinical Impression: Depression Condition: Stable Prescriptions: No Action famotidine 20 mg tablet 40 mg PO BID divalproex [Depakote] 500 mg tablet,delayed release (DR/EC) 1,500 mg PO .8 pm Qty: 90 4RF Rx Instructions: Take three tablets at 8 pm paliperidone 6 mg tablet extended release 24 hr 6 mg PO QAM 30 Days Qty: 30 3RF Rx Instructions: Take one tablet every morning docusate sodium 100 mg capsule 100 mg PO DAILY cholecalciferol (vitamin D3) 1,250 mcg (50,000 unit) capsule 1,250 mcg PO Q7D Rx Instructions: GIVEN EVERY SATURDAY magnesium oxide 400 mg magnesium tablet 400 mg PO DAILY All Day Allergy (cetirizine) 10 mg capsule 10 mg PO DAILY amitriptyline 25 mg tablet 25 mg PO BEDTIME rosuvastatin 10 mg tablet 10 mg PO DAILY Dairy Aid 3,000 unit tablet,chewable 3,000 unit PO QID PRN Rx Instructions: administer with meals and/or snacks fluticasone propionate 50 mcg/actuation spray,suspension 2 spray intranasal DAILY PRN Rx Instructions: administer into each nostril [place] Cough Drops 3.2 mg lozenge 3.2 mg mucous membrane Q4H PRN pantoprazole 40 mg tablet,delayed release (DR/EC) 40 mg PO QAM ibuprofen 800 mg tablet 800 mg PO Q8H PRN guaifenesin [Mucinex] 600 mg tablet extended release 12hr 600 mg PO DAILY PRN nicotine (polacrilex) 4 mg lozenge 4 mg buccal Q2H PRN nystatin 100,000 unit/gram ointment 1 applic topical TID PRN ondansetron 4 mg tablet,disintegrating 8 mg PO BID PRN Orajel 3X Toothache-Gum 20-0.26-0.15 % gel mucous membrane Proctofoam HC 1-1 % foam 1 applic UT QID PRN promethazine-DM 6.25-15 mg/5 mL syrup 5 ml PO Q6H PRN carboxymethylcellulose sodium [Refresh Liquigel] 1 % drops, liquid gel 1 drp ophthalmic (eye) QID PRN albuterol sulfate [Ventolin HFA] 90 mcg/actuation HFA aerosol inhaler 2 puff inhalation Q6H PRN acetaminophen [Tylenol] 325 mg tablet 325 mg PO QID PRN diazepam [Valium] 5 mg tablet 5 mg PO TID Qty: 21 4RF Rx Instructions: Take one tablet at 10 am, 4 pm and 10 pm tamsulosin 0.4 mg capsule 0.4 mg PO DAILY 30 Days Qty: 30 1RF Discharge Orders: Discharge ED (Routine); Ordered 07/20/24 Ordered By: Stefania Do Discharge Diet: Advance as tolerated Discharge Activity: Resume usual activity Patient Instructions: Depression (ED) Coding Level of Care Code ED Project Management Consultant for Edi Mcgill
== END 2024-07-20 13:54 | disposition home or self-care (01) ==
PROVIDERS: Emergency Provider Emergency Medicine
DX: F32.A Depression, unspecified (principal)
CPT/HCPCS: 99281

== ENCOUNTER 2024-08-08 06:30 | Outpatient (RCR) | payer MEDICARE, MEDICAID, SELFPAY | END 2024-09-04 23:59 | disposition home or self-care (01) | LOC: SPT 06:30 | PROVIDERS: Visit Provider Nurse Practitioner Family | DX: M54.50 Low back pain, unspecified (principal); G89.29 Other chronic pain | CPT/HCPCS: 97110 ==

== ENCOUNTER 2024-09-02 21:25 | Emergency (ER) | payer MEDICARE, MEDICAID, SELFPAY ==
[2024-09-02 21:55] VITALS: BP 141/81; PULSE 96; RESP 18; TEMP 36.8; O2SAT 96
--- NOTE | 2024-09-02 22:02 | ECG_ITS ---
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 Measurements Intervals Hannah Rate: 104 P: 28 DE: 135 QRS: -17 QRSD: 87 T: 31 QT: 323 QTc: 426 Interpretive Statements SINUS TACHYCARDIA MINIMAL VOLTAGE CRITERIA FOR LVH, CONSIDER NORMAL VARIANT [MEETS CRITERIA IN ONE OF: R(aVL), S(V1), R(V5), R(V5/V6)+S(V1)] POSSIBLE ANTERIOR MYOCARDIAL INFARCTION , OF INDETERMINATE AGE [30 ms Q WAVE IN V3/V4, OR R < 0.2 mV IN V4] Compared to ECG 02/27/2024 22:13:39 Myocardial infarct finding now present Sinus rhythm no longer present Electronically Signed On 09-05-2024 08:00:43 SPLICER HELPER by Sanket Clemons M.D. [id number]
[2024-09-02 22:23] VITALS: BP 159/96; PULSE 99; O2SAT 97
--- NOTE | 2024-09-02 23:18 | W.ED.ANXIETY ---
HPI - Anxiety General: Chief Complaint: Anxiety Stated Complaint: anxiety Time Seen by Provider: 09/02/24 22:14 Source: patient Mode of arrival: EMS Limitations: no limitations History of Present Illness: Patient is a 19-year-old male with past medical history of panic disorder, PTSD, intermittent explosive disorder, and intellectual disabilities who presents to the emergency department complaining of 1 episode of sudden onset dizziness that occurred around 2100. He did arrive by ambulance, he reported to the ambulance that with his dizziness he felt that his vision blurred and he got short of breath with some chest pressure. He does report a history of panic attacks, stating this feels somewhat similar. Also notes he has high blood pressure but does not take anything for this. Patient has no symptoms at this time, states he is not feeling anxious. He has no pertinent past medical history in regards to heart conditions. No other symptoms noted at this time. Denies any SI or HI. MD complaint: other (Dizziness, chest pressure, shortness of breath, blurred vision) Onset (ago): hour(s) Quality: improving Place: home History of similar episodes: Yes Provoking factors: none known Relieving factors: nothing Exacerbating factors: nothing Associated symptoms: Reports chest pain; Deny chills, fever(s), headache(s), nausea, palpitations or vomiting Related Data Home Medications ?Medication ?Instructions ?Recorded ?Confirmed cholecalciferol (vitamin D3) 1,250 1,250 mcg PO Q7D 08/07/23 07/30/24 mcg (50,000 unit) capsule docusate sodium 100 mg capsule 100 mg PO DAILY 08/07/23 07/30/24 magnesium oxide 400 mg PO DAILY 08/07/23 07/30/24 famotidine 20 mg tablet 40 mg PO BID 12/11/23 07/30/24 acetaminophen 325 mg tablet 325 mg PO QID PRN 03/13/24 07/30/24 (Tylenol) albuterol sulfate 90 mcg/actuation 2 puff inhalation Q6H PRN 03/13/24 07/30/24 aerosol inhaler (Ventolin HFA) amitriptyline 25 mg tablet 25 mg PO BEDTIME 03/13/24 07/30/24 benzocaine 20 %-menthol 0.26 ea mucous membrane 03/13/24 07/30/24 %-zinc chloride 0.15 % mucosal gel (Orajel 3X Toothache-Gum) carboxymethylcellulose sodium 1 % 1 drp ophthalmic (eye) QID PRN 03/13/24 07/30/24 eye liquid gel drops (Refresh Liquigel) cetirizine 10 mg capsule (All Day 10 mg PO DAILY Allergy Symptoms 03/13/24 07/30/24 Allergy (cetirizine)) fluticasone propionate 50 2 spray intranasal DAILY PRN 03/13/24 07/30/24 mcg/actuation nasal spray,suspension guaifenesin 600 mg tablet, 600 mg PO DAILY PRN 03/13/24 07/30/24 extended release 12 hr (Mucinex) hydrocortisone 1 %-pramoxine 1 % 1 applic MS QID PRN 03/13/24 07/30/24 rectal foam (Proctofoam HC) ibuprofen 800 mg tablet 800 mg PO Q8H PRN 03/13/24 07/30/24 lactase 3,000 unit chewable tablet 3,000 unit PO QID PRN 03/13/24 07/30/24 (Dairy Aid) menthol 3.2 mg lozenges ([place] 3.2 mg mucous membrane Q4H PRN 03/13/24 07/30/24 Cough Drops) nicotine (polacrilex) 4 mg buccal 4 mg buccal Q2H PRN 03/13/24 07/30/24 lozenge nystatin 100,000 unit/gram topical 1 applic topical TID PRN 03/13/24 07/30/24 ointment ondansetron 4 mg disintegrating 8 mg PO BID PRN 03/13/24 07/30/24 tablet pantoprazole 40 mg tablet,delayed 40 mg PO QAM 03/13/24 07/30/24 release promethazine-DM 6.25 mg-15 mg/5 mL 5 ml PO Q6H PRN 03/13/24 07/30/24 oral syrup rosuvastatin 10 mg tablet 10 mg PO DAILY 03/13/24 07/30/24 hydroxyzine HCl 25 mg tablet 25 mg PO BID 07/30/24 07/30/24 tirzepatide 5 mg/0.5 mL mg SUBCUT .Every Saturday07/30/24 07/30/24 subcutaneous pen injector (Hi) Previous Rx's ?Medication ?Instructions ?Recorded tamsulosin 0.4 mg capsule 0.4 mg PO DAILY 30 days #30 caps 01/18/23 divalproex 500 mg tablet,delayed 1,500 mg (3 x 500 mg) PO .8 pm #90 06/12/24 release (Depakote) tabs diazepam 5 mg tablet (Valium) 2.5 mg (1/2 x 5 mg) PO DIRECTED 07/31/24 anxiety/agitation #21 tabs paliperidone 6 mg tablet,extended 6 mg PO QAM 30 days #30 tabs 07/31/24 release 24 hr Allergies Allergy/AdvReac Type Severity Reaction Status Date / Time oyster extract Allergy Unknown Verified 09/02/24 22:02 Review of Systems General: Reports: 10 or more systems reviewed and unremarkable except in HPI and below Const: Denies: fever(s), chills or fatigue Eyes: Reports: blurry vision; Denies: change in vision ENMT: Denies: throat pain, ear or mastoid pain or nasal discharge Card: Reports: chest pain; Denies: palpitations, swelling of feet/ankles or lightheadedness Resp: Reports: dyspnea; Denies: productive cough or wheezing GI: Denies: abdominal pain, nausea, vomiting, diarrhea or constipation : Denies: flank pain, difficulty urinating, dysuria or urinary frequency Musc: Denies: neck pain, back pain or joint pain Skin/Breast: Denies: rash Neuro: Reports: dizziness; Denies: headache(s), numbness in extremities or weakness in extremities PFSH ED PFSH: Medical History Panic disorder Nicotine dependence, cigarettes, uncomplicated Nicotine dependence, chewing tobacco, uncomplicated Nicotine dependence due to vaping tobacco product Chronic post-traumatic stress disorder Moderate intellectual disabilities Intermittent explosive disorder in adult severe Psychiatric care Dysuria Social History Smoking and tobacco/nicotine status: unknown if used tobacco/nicotine Physical Exam Const: COMMON NORMALS: no acute distress and no limitations GENERAL APPEARANCE: cooperative, comfortable and well developed NUTRITIONAL APPEARANCE: obese morbidly obese ORIENTATION/CONSCIOUSNESS: Yes awake HENMT: COMMON NORMALS: normocephalic, atraumatic and hearing grossly normal bilaterally HEAD & SCALP: normocephalic and atraumatic Eye: COMMON NORMALS: Equal, round and reactive pupils present, EOMs intact bilaterally and conjunctivae normal CONJUNCTIVA: Yes conjunctivae normal PUPIL: Yes Equal, round and reactive pupils present Neck/C-Spine: COMMON NORMALS: full ROM, supple and no JVD Resp: COMMON NORMALS: normal respiratory effort, No retractions, No use of accessory muscles and clear to auscultation bilaterally AUSCULTATION: clear to auscultation bilaterally Cardio: COMMON NORMALS: no JVD, regular rate, regular rhythm, No clicks present (Cardio), No murmurs present (Cardio) and No rub (Cardio) RATE: regular rate RHYTHM: regular rhythm GI: COMMON NORMALS: Normal to inspection, nondistended, normoactive bowel sounds present, Soft to palpation and non-tender AUSCULTATION: Yes normoactive bowel sounds PALPATION: Yes Soft to palpation RECTAL EXAM: Yes deferred Extremity: COMMON NORMALS: normal to inspection, full ROM and capillary refill normal Psych: COMMON NORMALS: mental status grossly normal and Normal thought process present ACTIVITY/MOTOR BEHAVIOR: Yes Avoids eye contact (attititude/behavior) THOUGHT PROCESS: Normal thought process present THOUGHT CONTENT: No Suicidality present, No Homicidality present and No Hallucination(s) present Skin: COMMON NORMALS: no rashes or lesions noted GENERAL SKIN EXAM: no rashes or lesions noted Course Vital Signs: Vital signs: Vital Signs Temperature 98.3 F 09/02/24 21:55 Pulse Rate 99 09/02/24 22:23 Respiratory Rate 18 09/02/24 21:55 Blood Pressure 159/96 09/02/24 22:23 Pulse Oximetry 97 09/02/24 22:23 Oxygen Delivery Me thod Room Air 09/02/24 22:23 MDM - Anxiety Medical Decision Making Patient presented with chest pain, shortness of breath, dizziness, visual changes. History of anxiety. EKG was normal. Lab work was unremarkable. Physical exam was unremarkable. With history of anxiety, and resolution of symptoms and stability of patient's condition throughout ED stay I do suspect an anxiety versus panic episode. Cannot rule out that this was blood pressure related as well informed him to monitor his blood pressures at home and to report primary care provider. Return precautions given. Lab Data 09/02/24 23:32 09/02/24 23:32 Laboratory Results WBC 9.11 10^3/uL (3.29-11.43) 09/02/24 23:32 RBC 5.23 10^6/uL (3.85-5.65) 09/02/24 23:32 Hgb 14.50 g/dL (11.27-16.99) 09/02/24 23:32 Hct 43.7 % (37-53) 09/02/24 23: MCV 83.6 fl (82-101) 09/02/24 23:32 MCH 27.7 pg (27-33) 09/02/24 23: MCHC 33.2 g/dL (30-55) 09/02/24 23: RDW 13.8 % (12.1-15.1) 09/02/24 23: Plt Count 215 10^3/cmm (157-399) 09/02/24 23: MPV 10.5 fL (7.4-10.4) H 09/02/24 23:32 Neut % (Auto) 51.0 % 09/02/24 23:32 Lymph % (Auto) 38.7 % 09/02/24 23:32 [place] % (Auto) 7.9 % 09/02/24 23: Eos % (Auto) 1.4 % 09/02/24 23: Baso % (Auto) 0.5 % 09/02/24 23: Neut # (Auto) 4.63 10^3/uL (1.8-7.7) 09/02/24 23:32 Lymph # (Auto) 3.5 10^3/uL (0.8-4.8) 09/02/24 23:32 [place] # (Auto) 0.7 10^3/uL (0.2-0.9) 09/02/24 23: Eos # (Auto) 0.1 10^3/uL (0.0-0.8) 09/02/24 23: Baso # (Auto) 0.1 10^3/uL (0.0-0.1) 09/02/24 23:32 Nucleated RBC % (auto) 0 % 09/02/24: Nucleated RBCs # 0.0 /100WBC 09/02/24 23:32 Sodium 138 mmol/L (136-145) 09/02/24 23:32 Potassium 4.0 mmol/L (3.5-5.1) 09/02/24 23:32 Chloride 102 mmol/L (98-107) 09/02/24 23:32 Carbon Dioxide 25 mmol/L (22-29) 09/02/24 23:32 Anion Gap 15.0 (5-19) 09/02/24 23:32 BUN 10 mg/dL (6-20) 09/02/24 23:32 Creatinine 0.7 mg/dL (0.7-1.2) 09/02/24 23:32 GFR Calculation 142.4 mL/min (90-130) H 09/02/24 23:32 Glucose 107 mg/dL (65-115) 09/02/24 23:32 Calculated Osmolality 286 mOsm/kg (285-295) 09/02/24 23:32 Calcium 9.0 mg/dL (8.5-10.5) 09/02/24 23:32 Total Bilirubin 0.3 mg/dL (0.15-1.2) 09/02/24 23:32 AST 44 U/L (0-40) H 09/02/24 23:32 ALT 112 U/L (0-41) H 09/02/24 23:32 Alkaline Phosphatase 91 U/L (40-130) 09/02/24 23:32 Total Protein 6.9 g/dL (6.6-8.7) 09/02/24 23:32 Albumin 4.3 g/dL (3.5-5.2) 09/02/24 23:32 Globulin 2.6 g/dL (1.3-4.6) 09/02/24 23:32 No radiology studies performed this visit Discharge Plan Discharge Patient Disposition: Home Clinical Impression: Acute anxiety Condition: Stable Prescriptions: No Action famotidine 20 mg tablet 40 mg PO BID divalproex [Depakote] 500 mg tablet,delayed release (DR/EC) 1,500 mg PO .8 pm Qty: 90 4RF Rx Instructions: Take three tablets at 8 pm hydroxyzine HCl 25 mg tablet 25 mg PO BID M[place]jar[place] 5 mg/0.5 mL pen injector SUBCUT .Every Saturday docusate sodium 100 mg capsule 100 mg PO DAILY cholecalciferol (vitamin D3) 1,250 mcg (50,000 unit) capsule 1,250 mcg PO Q7D Rx Instructions: GIVEN EVERY SATURDAY magnesium oxide 400 mg magnesium tablet 400 mg PO DAILY All Day Allergy (cetirizine) 10 mg capsule 10 mg PO DAILY amitriptyline 25 mg tablet 25 mg PO BEDTIME rosuvastatin 10 mg tablet 10 mg PO DAILY Dairy Aid 3,000 unit tablet,chewable 3,000 unit PO QID PRN Rx Instructions: administer with meals and/or snacks fluticasone propionate 50 mcg/actuation spray,suspension 2 spray intranasal DAILY PRN Rx Instructions: administer into each nostril [place] Cough Drops 3.2 mg lozenge 3.2 mg mucous membrane Q4H PRN pantoprazole 40 mg tablet,delayed release (DR/EC) 40 mg PO QAM ibuprofen 800 mg tablet 800 mg PO Q8H PRN guaifenesin [Mucinex] 600 mg tablet extended release 12hr 600 mg PO DAILY PRN nicotine (polacrilex) 4 mg lozenge 4 mg buccal Q2H PRN nystatin 100,000 unit/gram ointment 1 applic topical TID PRN ondansetron 4 mg tablet,disintegrating 8 mg PO BID PRN Orajel 3X Toothache-Gum 20-0.26-0.15 % gel mucous membrane Proctofoam HC 1-1 % foam 1 applic MS QID PRN promethazine-DM 6.25-15 mg/5 mL syrup 5 ml PO Q6H PRN carboxymethylcellulose sodium [Refresh Liquigel] 1 % drops, liquid gel 1 drp ophthalmic (eye) QID PRN albuterol sulfate [Ventolin HFA] 90 mcg/actuation HFA aerosol inhaler 2 puff inhalation Q6H PRN acetaminophen [Tylenol] 325 mg tablet 325 mg PO QID PRN diazepam [Valium] 5 mg tablet 2.5 mg PO DIRECTED Qty: 21 0RF Rx Instructions: Take half tablet at 8 am, 2 pm and 8 pm x 14 days then discontinue paliperidone 6 mg tablet extended release 24 hr 6 mg PO QAM 30 Days Qty: 30 3RF Rx Instructions: Take one tablet every morning tamsulosin 0.4 mg capsule 0.4 mg PO DAILY 30 Days Qty: 30 1RF Discharge Orders: Discharge ED (Routine); Ordered 09/03/24 Ordered By: Chance Gilbert Patient Instructions: Anxiety (ED) Activity Restrictions/Additional Instructions: Please follow-up with your primary care provider. Continue taking your home medications. Return with any new or worsening. Print Language: Burkinan Coding Level of Care Code ED Manager Msw for Edi Mcgill
[2024-09-02 23:46] LABS: Basophils # 0.1 10^3/uL (0.0-0.1); Basophils % 0.5 %; Eosinophils # 0.1 10^3/uL (0.0-0.8); Eosinophils % 1.4 %; Hematocrit 43.7 % (37-53); Lymphocytes # 3.5 10^3/uL (0.8-4.8); Lymphocytes % 38.7 %; Mean Corpuscular HGB Conc 33.2 g/dL (30-55); Mean Corpuscular Hemoglobin 27.7 pg (27-33); Mean Corpuscular Volume 83.6 fl (82-101); Mean Platelet Volume 10.5 fL (7.4-10.4); Monocytes # 0.7 10^3/uL (0.2-0.9); Monocytes % 7.9 %; Neutrophils # 4.63 10^3/uL (1.8-7.7); Nucleated Red Blood Cells % 0 %; Platelet Count 215 10^3/cmm (157-399); Red Blood Count 5.23 10^6/uL (3.85-5.65); Red Cell Distribution Width 13.8 % (12.1-15.1); White Blood Count 9.11 10^3/uL (3.29-11.43)
[2024-09-03 00:04] LABS: Alanine Aminotransferase 112 U/L (0-41); Albumin Level 4.3 g/dL (3.5-5.2); Alkaline Phosphatase 91 U/L (40-130); Aspartate Amino Transferase 44 U/L (0-40); Blood Urea Nitrogen 10 mg/dL (6-20); Carbon Dioxide 25 mmol/L (22-29); Chloride 102 mmol/L (98-107); Creatinine Clr Calc Pharmacy 285.1457; Globulin 2.6 g/dL (1.3-4.6); Glomerular Filtration Rate 142.4 mL/min (90-130); Glucose 107 mg/dL (65-115); Osmolality Calculated 286 mOsm/kg (285-295); Sodium 138 mmol/L (136-145); Total Bilirubin 0.3 mg/dL (0.15-1.2); Total Protein 6.9 g/dL (6.6-8.7)
[2024-09-03 00:27] VITALS: BP 151/71; PULSE 89; RESP 18; O2SAT 97
== END 2024-09-03 00:28 | disposition home or self-care (01) ==
PROVIDERS: Emergency Provider Physician Assistant
DX: F41.8 Other specified anxiety disorders (principal)
CPT/HCPCS: 80053; 85025; 93005; 99284

== ENCOUNTER → 2024-09-24 14:14 | Outpatient (BNVA) | payer MEDICARE, MEDICAID, OTHER, SELFPAY | PROVIDERS: Visit Provider Nurse Practitioner Psychiatric/Mental Health | DX: Z79.899 Other long term (current) drug therapy (principal) | CPT/HCPCS: 80053; 80061; 80164; 83036 ==

== ENCOUNTER 2025-01-13 20:00 | Outpatient (CLI) | payer MEDICARE, MEDICAID, SELFPAY | END 2025-01-13 20:01 | disposition home or self-care (01) | LOC: SLEEP 23:37 | PROVIDERS: PCP Nurse Practitioner Family; Visit Provider Internal Medicine Pulmonary Disease | DX: G47.34 Idiopathic sleep related nonobstructive alveolar hypoventilation (principal) | CPT/HCPCS: 95810 ==

== ENCOUNTER → 2025-04-07 15:40 | Outpatient (BNVA) | payer MEDICARE, MEDICAID, OTHER, SELFPAY | PROVIDERS: PCP Nurse Practitioner Family; Visit Provider Nurse Practitioner Psychiatric/Mental Health | DX: Z79.899 Other long term (current) drug therapy (principal) | CPT/HCPCS: 80053; 80164 ==